=== PATIENT | female | born 1945 | race Caucasian/White ===

== ENCOUNTER → 2016-05-24 | Outpatient (CLI) | payer MEDICARE ==
[~2016-05-24] MED LIST: AMIODARONE HCL100 M1 PO; ARTHRITIS PILL PO; ASPIR 8181 MG PO; ASPIRIN ENTERIC81 M1 PO; ASPIRIN81 M1 PO; ATORVASTATIN CA20 M1 PO; CELEBREX100 MG PO; CELEBREX200 MG PO; CELEBREX50 MG PO; COUMADIN1 M1 PO; COUMADIN6 M1 PO; DEEP SEA 45 ML45 ML NAS; DIGOXIN0.125 MG PO; DILANTIN100 MG PO; FLUTICASON0.05 MG/AC NAS; HYDROCODONE BIT1 T11 PO; KEFLEX500 MG PO; KEPPRA500 MG PO; LASIX20 MG PO; LOPRESSOR50 M1 PO; MUCINEX ER600 MG PO; PROTONIX20 MG PO; PROTONIX40 MG PO; QUINAPRIL20 MG PO; SEPTRA DS 800 M1 TAB PO; SYNTHROID,LEV112 MCG PO; Synthroid,Lev125 MCG PO; TRAMADOL HCL50 MG PO; TRAMADOL HYDRO100 MG PO; TRAMADOL50 MG PO; TYLENOL #3 PO; VENTOLIN H0.09 MG/AC INH; VOLTAREN GEL1% TP; XYZAL5 MG PO; ZYRTEC D PO; ZYRTEC10 MG PO
[2016-05-24 10:19] LABS: BASO % 0.8 % (0.0-1.0); EOS # 0.2 10*3/uL (0.0-0.4); EOS % 3.9 % (1.0-4.0); HEMATOCRIT 38.9 % (37.0-47.0); HEMOGLOBIN 12.2 g/dl (12.0-16.0); LYMPH # 1.2 10*3/uL (1.3-4.4); LYMPH % 24.4 % (27.0-41.0); MEAN CELL VOLUME 80.9 fl (81.0-99.0); MEAN CORPUSCULAR HGB 25.4 pg (27.0-31.0); MEAN CORPUSCULAR HGB CONC 31.4 g/dl (33.0-37.0); MEAN PLATELET VOLUME 9.8 fl (9.6-12.3); MONO # 0.4 10*3/uL (0.1-1.0); MONO % 8.2 % (3.0-9.0); NEUT % 62.3 % (47.0-73.0); PLATELET COUNT AUTOMATED 189 10*3/uL (130-400); RED BLOOD COUNT 4.81 10*6/uL (4.10-5.10); RED CELL DISTRI WIDTH 16.9 % (0-14.5); WHITE BLOOD COUNT 4.9 10*3/uL (4.8-10.8)
[2016-05-24 10:35] LABS: ALBUMIN 3.6 gm/dl (3.1-4.5); ALKALINE PHOSPHATASE 129 U/L (45-117); BILIRUBIN, TOTAL 0.5 mg/dl (0.2-1.0); BUN 26 mg/dl (7-24); CARBON DIOXIDE 26 mmol/L (21-32); CHLORIDE 108 mmol/L (98-107); CHOLESTEROL 190 mg/dL (<200); EST GLOM FILT AFRICAN AMERICAN > 60 ml/min; GLUCOSE 105 mg/dL (65-99); HDL CHOLESTEROL 75 mg/dl (40-60); LDL CHOLESTEROL 89 mg/dL (9-159); POTASSIUM 3.5 mmol/L (3.5-5.1); SGOT/AST 17 IU/L (3-35); SGPT/ALT 20 U/L (12-78); SODIUM 140 mmol/L (136-145); TOTAL PROTEIN 7.1 gm/dL (6.4-8.2); TRIGLYCERIDES 132 mg/dl (<150); VLDL CHOLESTEROL 26 mg/dL (6-40)
[2016-05-24 10:36] LABS: HEMOGLOBIN A1c 5.4 % (4.8-5.6)
[2016-05-24 10:48] LABS: DIGOXIN 0.65 ng/ml (0.8-2.0)
== END | disposition home or self-care (01) ==
LOC: RESCLI 05-17 03:50 → LAB 02:02 → RESCLI 07:34
PROVIDERS: Student in an Organized Health Care Education/Training Program
DX: I25.10 Atherosclerotic heart disease of native coronary artery without angina pectoris (principal); E03.9 Hypothyroidism, unspecified; D64.9 Anemia, unspecified; E55.9 Vitamin D deficiency, unspecified

== ENCOUNTER → 2016-07-26 | Outpatient (CLI) | payer MEDICARE | END | disposition home or self-care (01) | LOC: RESCLI 02:00 | DX: J32.1 Chronic frontal sinusitis (principal); E03.9 Hypothyroidism, unspecified; I11.0 Hypertensive heart disease with heart failure; I50.9 Heart failure, unspecified; J44.9 Chronic obstructive pulmonary disease, unspecified; M19.011 Primary osteoarthritis, right shoulder; K21.9 Gastro-esophageal reflux disease without esophagitis; Z88.1 Allergy status to other antibiotic agents ==

== ENCOUNTER 2016-08-06 13:36 | Emergency (ER) | payer MEDICARE ==
[~2016-08-06] VITALS: Ht 154.9 cm; Wt 83.5 kg
[2016-08-06 13:55] VITALS: BP 156/78
[2016-08-06] MEDS ORDERED: CELECOXIB100 M1 PO (13:59)
[2016-08-06] MEDS ORDERED: VITAMIN-D1000 IU PO (13:59)
== END 2016-08-06 15:52 | disposition left against medical advice (07) ==
LOC: ED 13:36
DX: S60.221A Contusion of right hand, initial encounter (principal); S70.02XA Contusion of left hip, initial encounter; S20.212A Contusion of left front wall of thorax, initial encounter; S60.211A Contusion of right wrist, initial encounter; J44.9 Chronic obstructive pulmonary disease, unspecified; E03.9 Hypothyroidism, unspecified; Z86.73 Personal history of transient ischemic attack (TIA), and cerebral infarction without residual deficits; I11.0 Hypertensive heart disease with heart failure; I50.9 Heart failure, unspecified; M19.90 Unspecified osteoarthritis, unspecified site; D53.9 Nutritional anemia, unspecified; Z88.1 Allergy status to other antibiotic agents; Z88.8 Allergy status to other drugs, medicaments and biological substances; Z79.82 Long term (current) use of aspirin; Z79.899 Other long term (current) drug therapy

== ENCOUNTER → 2016-08-24 | Outpatient (CLI) | payer MEDICARE ==
[~2016-08-24] MED LIST changes: +CELECOXIB100 M1 PO; +VITAMIN-D1000 IU PO
== END | disposition home or self-care (01) ==
LOC: RESCLI 02:37
DX: E03.9 Hypothyroidism, unspecified (principal); I11.0 Hypertensive heart disease with heart failure; I50.9 Heart failure, unspecified; J44.9 Chronic obstructive pulmonary disease, unspecified; M15.9 Polyosteoarthritis, unspecified; G89.29 Other chronic pain; T14.8 Other injury of unspecified body region; J30.9 Allergic rhinitis, unspecified; K21.9 Gastro-esophageal reflux disease without esophagitis; I35.0 Nonrheumatic aortic (valve) stenosis; Z88.1 Allergy status to other antibiotic agents

== ENCOUNTER → 2016-09-21 | Outpatient (CLI) | payer MEDICARE | END | disposition home or self-care (01) | LOC: RESCLI 02:51 | DX: T14.8 Other injury of unspecified body region (principal); E03.9 Hypothyroidism, unspecified; E55.9 Vitamin D deficiency, unspecified; M15.9 Polyosteoarthritis, unspecified; G89.29 Other chronic pain; I25.10 Atherosclerotic heart disease of native coronary artery without angina pectoris; I11.0 Hypertensive heart disease with heart failure; K21.9 Gastro-esophageal reflux disease without esophagitis; I50.42 Chronic combined systolic (congestive) and diastolic (congestive) heart failure; Z88.1 Allergy status to other antibiotic agents; X58.XXXA Exposure to other specified factors, initial encounter; Y93.89 Activity, other specified; Y92.89 Other specified places as the place of occurrence of the external cause; Y99.8 Other external cause status ==

== ENCOUNTER → 2016-10-19 | Outpatient (CLI) | payer MEDICARE | END | disposition home or self-care (01) | LOC: RESCLI 01:31 | DX: I11.0 Hypertensive heart disease with heart failure (principal); I25.10 Atherosclerotic heart disease of native coronary artery without angina pectoris; I50.42 Chronic combined systolic (congestive) and diastolic (congestive) heart failure; E55.9 Vitamin D deficiency, unspecified; M54.5 Low back pain; E03.9 Hypothyroidism, unspecified; M15.9 Polyosteoarthritis, unspecified; Z86.718 Personal history of other venous thrombosis and embolism ==

== ENCOUNTER → 2016-11-02 | Outpatient (CLI) | payer MEDICARE | END | disposition home or self-care (01) | LOC: RESCLI 01:37 | DX: I11.0 Hypertensive heart disease with heart failure (principal); I50.42 Chronic combined systolic (congestive) and diastolic (congestive) heart failure; J30.2 Other seasonal allergic rhinitis; M54.9 Dorsalgia, unspecified; G89.29 Other chronic pain; M15.9 Polyosteoarthritis, unspecified; E03.9 Hypothyroidism, unspecified; E55.9 Vitamin D deficiency, unspecified; I25.10 Atherosclerotic heart disease of native coronary artery without angina pectoris ==

== ENCOUNTER → 2016-12-20 | Outpatient (CLI) | payer MEDICARE, MEDICAID | END | disposition home or self-care (01) | LOC: RESCLI 01:28 | DX: D64.9 Anemia, unspecified (principal); M54.9 Dorsalgia, unspecified; E55.9 Vitamin D deficiency, unspecified; G89.29 Other chronic pain; I25.10 Atherosclerotic heart disease of native coronary artery without angina pectoris; I13.0 Hypertensive heart and chronic kidney disease with heart failure and stage 1 through stage 4 chronic kidney disease, or unspecified chronic kidney disease; N18.3 Chronic kidney disease, stage 3 (moderate); I50.42 Chronic combined systolic (congestive) and diastolic (congestive) heart failure; E03.9 Hypothyroidism, unspecified; M15.9 Polyosteoarthritis, unspecified; J30.2 Other seasonal allergic rhinitis; J44.9 Chronic obstructive pulmonary disease, unspecified; M79.89 Other specified soft tissue disorders; Z88.1 Allergy status to other antibiotic agents ==

== ENCOUNTER → 2017-02-15 | Outpatient (CLI) | payer MEDICARE | END | disposition home or self-care (01) | LOC: RESCLI 08:41 | DX: I11.0 Hypertensive heart disease with heart failure (principal); I50.42 Chronic combined systolic (congestive) and diastolic (congestive) heart failure; R68.89 Other general symptoms and signs; J02.9 Acute pharyngitis, unspecified; B96.89 Other specified bacterial agents as the cause of diseases classified elsewhere; J01.90 Acute sinusitis, unspecified; M15.9 Polyosteoarthritis, unspecified; J30.2 Other seasonal allergic rhinitis; M79.89 Other specified soft tissue disorders; R60.0 Localized edema; Z96.653 Presence of artificial knee joint, bilateral ==

== ENCOUNTER → 2017-03-29 | Outpatient (CLI) | payer MEDICARE ==
[2017-03-29 11:38] LABS: BASO % 0.7 % (0.0-1.0); EOS % 0.7 % (1.0-4.0); HEMATOCRIT 40.1 % (37.0-47.0); HEMOGLOBIN 13.4 g/dl (12.0-16.0); LYMPH # 0.6 10*3/uL (1.3-4.4); LYMPH % 13.7 % (27.0-41.0); MEAN CELL VOLUME 92.2 fl (81.0-99.0); MEAN CORPUSCULAR HGB 30.8 pg (27.0-31.0); MEAN CORPUSCULAR HGB CONC 33.4 g/dl (33.0-37.0); MEAN PLATELET VOLUME 10.9 fl (9.6-12.3); MONO # 0.5 10*3/uL (0.1-1.0); MONO % 11.1 % (3.0-9.0); NEUT # 3.1 10*3/uL (2.3-7.9); NEUT % 73.3 % (47.0-73.0); PLATELET COUNT AUTOMATED 122 10*3/uL (130-400); RED BLOOD COUNT 4.35 10*6/uL (4.10-5.10); RED CELL DISTRI WIDTH 14.1 % (0-14.5); WHITE BLOOD COUNT 4.2 10*3/uL (4.8-10.8)
[2017-03-29 12:12] LABS: ALBUMIN 3.6 gm/dl (3.1-4.5); CREATININE 1.13 mg/dL (0.55-1.02); POTASSIUM 2.9 mmol/L (3.5-5.1); TOTAL PROTEIN 7.1 gm/dL (6.4-8.2)
[2017-03-29 13:19] LABS: VITAMIN D, 25-HYDROXY 19.2 ng/mL (30-100)
[2017-03-30 08:10] LABS: RHEUMATOID ARTHRITIS FACTOR <10.0 IU/mL (0.0-13.9)
[2017-03-30 11:03] LABS: ANA DIRECT Negative (Negative)
[2017-03-30 22:05] LABS: CCP ANTIBODIES IGG/IGA 1 units (0-19)
== END | disposition home or self-care (01) ==
LOC: RESCLI 00:49 → LAB 00:49 → RESCLI 10:29
PROVIDERS: Internal Medicine Hospice and Palliative Medicine
DX: E03.9 Hypothyroidism, unspecified (principal); E55.9 Vitamin D deficiency, unspecified; J44.9 Chronic obstructive pulmonary disease, unspecified; I11.0 Hypertensive heart disease with heart failure; I50.42 Chronic combined systolic (congestive) and diastolic (congestive) heart failure; G89.29 Other chronic pain

== ENCOUNTER → 2017-05-02 | Outpatient (CLI) | payer MEDICARE | END | disposition home or self-care (01) | LOC: RESCLI 03:54 | DX: I13.0 Hypertensive heart and chronic kidney disease with heart failure and stage 1 through stage 4 chronic kidney disease, or unspecified chronic kidney disease (principal); I50.42 Chronic combined systolic (congestive) and diastolic (congestive) heart failure; N18.3 Chronic kidney disease, stage 3 (moderate); M15.9 Polyosteoarthritis, unspecified; G89.29 Other chronic pain; M54.5 Low back pain; E03.9 Hypothyroidism, unspecified; E55.9 Vitamin D deficiency, unspecified; I25.10 Atherosclerotic heart disease of native coronary artery without angina pectoris; J44.9 Chronic obstructive pulmonary disease, unspecified; J01.01 Acute recurrent maxillary sinusitis; R42 Dizziness and giddiness ==

== ENCOUNTER 2017-05-24 11:34 | Inpatient (IN) | payer MEDICARE ==
[~2017-05-24] VITALS: Ht 160 cm; Wt 72.6 kg
--- NOTE | ~2017-05-24 | EKG ---
[place], [place] ELECTROCARDIOGRAM REPORT NAME: CATIE MARR UNIT #: [id number] ROOM: 419 DOCTOR: BENJI VALENCIA MD BIRTHDATE: [birth year] DOS: RATE AND RHYTHM: Normal sinus rhythm at 72 beats per minute. MS interval 187 milliseconds, QRS duration 160 milliseconds. Corrected QT interval 403 milliseconds. QRS axis is -13. IMPRESSION: 1. Sinus rhythm. 2. Left ventricle hypertrophy with IVCD and secondary repolarization abnormalities. ST-T wave abnormality seen in I, aVL, V5, V6. No old EKG to compare with. BENJI VALENCIA MD CM:EKGRPT:ELECTROCARDIOGRAM REPORT [id number] BENJI VALECNIA MD
[2017-05-24 11:36] VITALS: BP 98/45
[2017-05-24 12:16] LABS: BASO # 0.1 10*3/uL (0.0-0.1); BASO % 0.5 % (0.0-1.0); EOS # 0.2 10*3/uL (0.0-0.4); HEMATOCRIT 45.7 % (37.0-47.0); HEMOGLOBIN 16.1 g/dl (12.0-16.0); LYMPH % 20.4 % (27.0-41.0); MEAN CELL VOLUME 88.9 fl (81.0-99.0); MEAN CORPUSCULAR HGB 31.3 pg (27.0-31.0); MEAN CORPUSCULAR HGB CONC 35.2 g/dl (33.0-37.0); MEAN PLATELET VOLUME 10.1 fl (9.6-12.3); MONO # 0.7 10*3/uL (0.1-1.0); MONO % 7.2 % (3.0-9.0); NEUT # 6.9 10*3/uL (2.3-7.9); NEUT % 68.8 % (47.0-73.0); PLATELET COUNT AUTOMATED 250 10*3/uL (130-400); RED BLOOD COUNT 5.14 10*6/uL (4.10-5.10); RED CELL DISTRI WIDTH 12.3 % (0-14.5)
[2017-05-24 12:25] LABS: ACT PARTIAL THROMBO TIME 21.7 SECONDS (20.8-31.5)
[2017-05-24 12:32] LABS: ALBUMIN 3.9 gm/dl (3.1-4.5); ALKALINE PHOSPHATASE 137 U/L (45-117); BUN 53 mg/dl (7-24); CHLORIDE 90 mmol/L (98-107); CREATININE 1.99 mg/dL (0.55-1.02); LIPASE 231 U/L (73-393); POTASSIUM 2.6 mmol/L (3.5-5.1); SGOT/AST 20 IU/L (3-35); SGPT/ALT 26 U/L (12-78); SODIUM 132 mmol/L (136-145); TOTAL PROTEIN 8.3 gm/dL (6.4-8.2)
[2017-05-24 12:39] LABS: TROPONIN I < 0.015 ng/ml (<0.045)
[2017-05-24 12:48] VITALS: BP 144/68
[2017-05-24 14:00] VITALS: BP 161/80
[2017-05-24] MEDS ORDERED: LASIX20 MG PO (14:15)
[2017-05-24 16:09] VITALS: BP 149/82
[2017-05-24 16:38] LABS: BILIRUBIN NEGATIVE (NEGATIVE); BLOOD NEGATIVE (NEGATIVE); CLARITY SL CLOUDY (CLEAR); COLOR YELLOW (YELLOW); GLUCOSE NEGATIVE (NEGATIVE); KETONE NEGATIVE (NEGATIVE); LEUKO ESTERASE 2+ (NEGATIVE); NITRITE NEGATIVE (NEGATIVE); UROBILINOGEN 0.2 E.U./dl (0.2-1.0)
[2017-05-24 16:52] LABS: BACTERIA 1+; YEAST TRACE
[2017-05-24 16:53] LABS: EPITHELIAL CELLS 41-50
[2017-05-24 16:54] LABS: WBC 21-30 wbc/hpf (0-5)
[2017-05-24 20:00] VITALS: BP 144/76
[2017-05-25] VITALS: BP 118/50
[2017-05-25 06:15] LABS: BASO % 0.5 % (0.0-1.0); EOS # 0.2 10*3/uL (0.0-0.4); LYMPH # 1.1 10*3/uL (1.3-4.4); LYMPH % 18.8 % (27.0-41.0); MEAN CORPUSCULAR HGB 31.2 pg (27.0-31.0); MEAN CORPUSCULAR HGB CONC 33.8 g/dl (33.0-37.0); MEAN PLATELET VOLUME 10.2 fl (9.6-12.3); MONO # 0.5 10*3/uL (0.1-1.0); MONO % 7.6 % (3.0-9.0); NEUT # 4.1 10*3/uL (2.3-7.9); NEUT % 68.3 % (47.0-73.0); RED BLOOD COUNT 4.23 10*6/uL (4.10-5.10); RED CELL DISTRI WIDTH 12.7 % (0-14.5); WHITE BLOOD COUNT 6.1 10*3/uL (4.8-10.8)
[2017-05-25 06:18] LABS: HEMOGLOBIN 13.2 g/dl (12.0-16.0); MEAN CELL VOLUME 92.2 fl (81.0-99.0); PLATELET COUNT AUTOMATED 168 10*3/uL (130-400)
[2017-05-25 06:32] LABS: ALBUMIN 3.1 gm/dl (3.1-4.5); CREATININE 1.66 mg/dL (0.55-1.02); PHOSPHOROUS 2.7 mg/dL (2.5-4.9); POTASSIUM 2.7 mmol/L (3.5-5.1)
[2017-05-25 06:45] LABS: DIGOXIN 1.62 ng/ml (0.8-2.0); THYROID STIM HORMONE (HS) 0.252 uIU/ml (0.358-4.75); TOTAL PROTEIN 6.4 gm/dL (6.4-8.2)
[2017-05-25 07:53] LABS: VITAMIN D, 25-HYDROXY 39.5 ng/mL (30-100)
[2017-05-25 08:00] VITALS: BP 127/46
[2017-05-25 12:00] VITALS: BP 135/57
[2017-05-25 15:29] LABS: CREATININE 1.61 mg/dL (0.55-1.02); POTASSIUM 3.3 mmol/L (3.5-5.1)
[2017-05-25 16:00] VITALS: BP 146/56
[2017-05-25 20:00] VITALS: BP 126/86; BP 138/96
== END 2017-05-26 00:13 | disposition left against medical advice (07) | DRG 871 ==
LOC: ED 11:34 → 4E 13:39 → EDHOLD 13:39 → 4E 14:11
PROVIDERS: Emergency Medicine; Internal Medicine
DX: A41.9 Sepsis, unspecified organism (principal); N17.0 Acute kidney failure with tubular necrosis; I50.42 Chronic combined systolic (congestive) and diastolic (congestive) heart failure; E87.1 Hypo-osmolality and hyponatremia; I11.0 Hypertensive heart disease with heart failure; E86.0 Dehydration; K52.9 Noninfective gastroenteritis and colitis, unspecified; E87.6 Hypokalemia; I35.0 Nonrheumatic aortic (valve) stenosis; M15.9 Polyosteoarthritis, unspecified; E87.8 Other disorders of electrolyte and fluid balance, not elsewhere classified; R73.9 Hyperglycemia, unspecified; E83.41 Hypermagnesemia; E03.9 Hypothyroidism, unspecified; Z96.651 Presence of right artificial knee joint; Z90.49 Acquired absence of other specified parts of digestive tract; Z95.2 Presence of prosthetic heart valve; Z86.73 Personal history of transient ischemic attack (TIA), and cerebral infarction without residual deficits; Z87.891 Personal history of nicotine dependence; Z86.718 Personal history of other venous thrombosis and embolism; Z79.82 Long term (current) use of aspirin; Z79.899 Other long term (current) drug therapy; Z88.1 Allergy status to other antibiotic agents; Z88.8 Allergy status to other drugs, medicaments and biological substances; Z82.49 Family history of ischemic heart disease and other diseases of the circulatory system; Z83.49 Family history of other endocrine, nutritional and metabolic diseases

== ENCOUNTER → 2017-06-07 | Outpatient (CLI) | payer MEDICARE ==
[2017-06-07 11:42] LABS: CREATININE 1.65 mg/dL (0.55-1.02); POTASSIUM 3.1 mmol/L (3.5-5.1)
[2017-06-07 11:52] LABS: DIGOXIN 1.89 ng/ml (0.8-2.0)
== END | disposition home or self-care (01) ==
LOC: RESCLI 01:32
PROVIDERS: Student in an Organized Health Care Education/Training Program
DX: I13.0 Hypertensive heart and chronic kidney disease with heart failure and stage 1 through stage 4 chronic kidney disease, or unspecified chronic kidney disease (principal); I50.42 Chronic combined systolic (congestive) and diastolic (congestive) heart failure; N18.3 Chronic kidney disease, stage 3 (moderate); J44.9 Chronic obstructive pulmonary disease, unspecified; M54.5 Low back pain; I35.0 Nonrheumatic aortic (valve) stenosis; E55.9 Vitamin D deficiency, unspecified; E03.9 Hypothyroidism, unspecified; M15.9 Polyosteoarthritis, unspecified; R42 Dizziness and giddiness

== ENCOUNTER → 2017-07-18 | Outpatient (CLI) | payer MEDICARE | END | disposition home or self-care (01) | LOC: RESCLI 04:33 | DX: I13.0 Hypertensive heart and chronic kidney disease with heart failure and stage 1 through stage 4 chronic kidney disease, or unspecified chronic kidney disease (principal); N18.3 Chronic kidney disease, stage 3 (moderate); I50.42 Chronic combined systolic (congestive) and diastolic (congestive) heart failure; I35.0 Nonrheumatic aortic (valve) stenosis; J44.9 Chronic obstructive pulmonary disease, unspecified; M54.5 Low back pain; E55.9 Vitamin D deficiency, unspecified; E03.9 Hypothyroidism, unspecified; M15.9 Polyosteoarthritis, unspecified; K21.9 Gastro-esophageal reflux disease without esophagitis; Z88.1 Allergy status to other antibiotic agents ==

== ENCOUNTER → 2017-08-23 | Outpatient (CLI) | payer MEDICARE ==
[2017-08-23 11:56] LABS: CREATININE 1.55 mg/dL (0.55-1.02); POTASSIUM 3.4 mmol/L (3.5-5.1)
== END | disposition home or self-care (01) ==
LOC: RESCLI 04:09
PROVIDERS: Internal Medicine
DX: J45.909 Unspecified asthma, uncomplicated (principal); M54.5 Low back pain; Z79.899 Other long term (current) drug therapy; Z88.8 Allergy status to other drugs, medicaments and biological substances

== ENCOUNTER → 2017-09-21 | Outpatient (CLI) | payer MEDICARE | END | disposition home or self-care (01) | LOC: RESCLI 04:34 | DX: I13.0 Hypertensive heart and chronic kidney disease with heart failure and stage 1 through stage 4 chronic kidney disease, or unspecified chronic kidney disease (principal); N18.3 Chronic kidney disease, stage 3 (moderate); I50.42 Chronic combined systolic (congestive) and diastolic (congestive) heart failure; J44.9 Chronic obstructive pulmonary disease, unspecified; I35.0 Nonrheumatic aortic (valve) stenosis; E55.9 Vitamin D deficiency, unspecified; E03.9 Hypothyroidism, unspecified; M15.9 Polyosteoarthritis, unspecified; M54.5 Low back pain; M79.89 Other specified soft tissue disorders; Z88.8 Allergy status to other drugs, medicaments and biological substances ==

== ENCOUNTER 2017-09-25 14:34 | Emergency (ER) | payer MEDICARE ==
[~2017-09-25] VITALS: Ht 154.9 cm; Wt 61.2 kg
[2017-09-25 14:37] VITALS: BP 150/67
[2017-09-25 15:47] LABS: BASO % 0.6 % (0.0-1.0); EOS # 0.2 10*3/uL (0.0-0.4); EOS % 3.2 % (1.0-4.0); HEMATOCRIT 36.8 % (37.0-47.0); HEMOGLOBIN 12.3 g/dl (12.0-16.0); LYMPH # 1.3 10*3/uL (1.3-4.4); LYMPH % 19.2 % (27.0-41.0); MEAN CELL VOLUME 94.8 fl (81.0-99.0); MEAN CORPUSCULAR HGB 31.7 pg (27.0-31.0); MEAN CORPUSCULAR HGB CONC 33.4 g/dl (33.0-37.0); MEAN PLATELET VOLUME 10.5 fl (9.6-12.3); MONO # 0.4 10*3/uL (0.1-1.0); MONO % 5.2 % (3.0-9.0); NEUT % 71.5 % (47.0-73.0); PLATELET COUNT AUTOMATED 193 10*3/uL (130-400); RED BLOOD COUNT 3.88 10*6/uL (4.10-5.10); RED CELL DISTRI WIDTH 13.1 % (0-14.5); WHITE BLOOD COUNT 6.9 10*3/uL (4.8-10.8)
[2017-09-25 15:55] LABS: ACT PARTIAL THROMBO TIME 24.7 SECONDS (20.8-31.5); INTERNATIONAL NORM RATIO 0.9 (2.0-3.5)
[2017-09-25 16:12] LABS: ALBUMIN 3.6 gm/dl (3.1-4.5); CREATININE 1.34 mg/dL (0.55-1.02); POTASSIUM 3.6 mmol/L (3.5-5.1)
== END 2017-09-25 17:32 | disposition home or self-care (01) ==
LOC: ED 14:34
PROVIDERS: Emergency Medicine
DX: R20.0 Anesthesia of skin (principal); I11.0 Hypertensive heart disease with heart failure; I50.9 Heart failure, unspecified; E03.9 Hypothyroidism, unspecified; M19.90 Unspecified osteoarthritis, unspecified site; Z88.1 Allergy status to other antibiotic agents; Z88.8 Allergy status to other drugs, medicaments and biological substances; Z79.899 Other long term (current) drug therapy; Z79.82 Long term (current) use of aspirin; Z87.891 Personal history of nicotine dependence

== ENCOUNTER → 2017-12-08 | Outpatient (CLI) | payer MEDICARE ==
[~2017-12-08] MED LIST changes: +'zithromax250 MG PO; +GUAIFENESIN600 MG PO; +K-TAB20 MEQ PO
== END | disposition home or self-care (01) ==
LOC: RESCLI 00:58
DX: Z41.9 Encounter for procedure for purposes other than remedying health state, unspecified (principal); I13.0 Hypertensive heart and chronic kidney disease with heart failure and stage 1 through stage 4 chronic kidney disease, or unspecified chronic kidney disease; I50.42 Chronic combined systolic (congestive) and diastolic (congestive) heart failure; N18.3 Chronic kidney disease, stage 3 (moderate); M19.90 Unspecified osteoarthritis, unspecified site; E55.9 Vitamin D deficiency, unspecified; I25.10 Atherosclerotic heart disease of native coronary artery without angina pectoris; E03.9 Hypothyroidism, unspecified; H18.9 Unspecified disorder of cornea; R42 Dizziness and giddiness; J44.9 Chronic obstructive pulmonary disease, unspecified; E66.3 Overweight; Z79.899 Other long term (current) drug therapy; Z79.82 Long term (current) use of aspirin; Z88.8 Allergy status to other drugs, medicaments and biological substances

== ENCOUNTER 2018-01-13 13:36 | Emergency (ER) | payer MEDICARE ==
[~2018-01-13] VITALS: Ht 165.1 cm; Wt 68.0 kg
[~2018-01-13 13:36] MED LIST changes: -'zithromax250 MG PO; -GUAIFENESIN600 MG PO; -K-TAB20 MEQ PO
[2018-01-13 14:19] LABS: BASO % 0.3 % (0.0-1.0); EOS # 0.2 10*3/uL (0.0-0.4); EOS % 2.7 % (1.0-4.0); HEMOGLOBIN 12.5 g/dl (12.0-16.0); LYMPH # 1.4 10*3/uL (1.3-4.4); LYMPH % 15.7 % (27.0-41.0); MEAN CELL VOLUME 94.5 fl (81.0-99.0); MEAN CORPUSCULAR HGB 31.1 pg (27.0-31.0); MEAN CORPUSCULAR HGB CONC 32.9 g/dl (33.0-37.0); MONO # 0.6 10*3/uL (0.1-1.0); MONO % 7.2 % (3.0-9.0); NEUT # 6.3 10*3/uL (2.3-7.9); NEUT % 73.9 % (47.0-73.0); PLATELET COUNT AUTOMATED 167 10*3/uL (130-400); RED BLOOD COUNT 4.02 10*6/uL (4.10-5.10); RED CELL DISTRI WIDTH 12.9 % (0-14.5); WHITE BLOOD COUNT 8.6 10*3/uL (4.8-10.8)
[2018-01-13 14:35] LABS: ALBUMIN 3.6 gm/dl (3.1-4.5); CREATININE 1.11 mg/dL (0.55-1.02); POTASSIUM 2.9 mmol/L (3.5-5.1)
[2018-01-13 14:36] VITALS: BP 126/79
[2018-01-13] MEDS ORDERED: K-TAB20 MEQ PO (15:12)
[2018-01-13] MEDS ORDERED: GUAIFENESIN600 MG PO (15:18)
[2018-01-13] MEDS ORDERED: 'zithromax250 MG PO (15:18)
== END 2018-01-13 15:21 | disposition home or self-care (01) ==
LOC: ED 13:36
PROVIDERS: Nurse Practitioner Family
DX: J06.9 Acute upper respiratory infection, unspecified (principal); E87.6 Hypokalemia; I11.0 Hypertensive heart disease with heart failure; I50.9 Heart failure, unspecified; E03.9 Hypothyroidism, unspecified; Z88.1 Allergy status to other antibiotic agents; Z88.8 Allergy status to other drugs, medicaments and biological substances; Z79.82 Long term (current) use of aspirin; Z79.899 Other long term (current) drug therapy; Z86.73 Personal history of transient ischemic attack (TIA), and cerebral infarction without residual deficits; Z86.718 Personal history of other venous thrombosis and embolism; Z90.49 Acquired absence of other specified parts of digestive tract; Z87.891 Personal history of nicotine dependence

== ENCOUNTER 2018-02-13 13:55 | Emergency (ER) | payer MEDICARE, MEDICAID ==
--- NOTE | ~2018-02-13 | EKG ---
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
[~2018-02-13 13:55] MED LIST changes: +'zithromax250 MG PO; +DOXYCYCLINE100 M3 PO; +GUAIFENESIN600 MG PO; +K-TAB20 MEQ PO; +PREDNISONE50 MG PO
[2018-02-13 14:05] VITALS: BP 154/98
[2018-02-13 14:44] LABS: BASO % 0.3 % (0.0-1.0); EOS # 0.1 10*3/uL (0.0-0.4); EOS % 0.9 % (1.0-4.0); HEMATOCRIT 42.4 % (37.0-47.0); HEMOGLOBIN 13.7 g/dl (12.0-16.0); LYMPH # 0.8 10*3/uL (1.3-4.4); LYMPH % 10.4 % (27.0-41.0); MEAN CELL VOLUME 94.4 fl (81.0-99.0); MEAN CORPUSCULAR HGB 30.5 pg (27.0-31.0); MEAN CORPUSCULAR HGB CONC 32.3 g/dl (33.0-37.0); MEAN PLATELET VOLUME 10.4 fl (9.6-12.3); MONO # 0.1 10*3/uL (0.1-1.0); MONO % 1.3 % (3.0-9.0); NEUT # 6.8 10*3/uL (2.3-7.9); NEUT % 86.7 % (47.0-73.0); PLATELET COUNT AUTOMATED 168 10*3/uL (130-400); RED BLOOD COUNT 4.49 10*6/uL (4.10-5.10); RED CELL DISTRI WIDTH 13.2 % (0-14.5); WHITE BLOOD COUNT 7.8 10*3/uL (4.8-10.8)
[2018-02-13 14:53] LABS: ACT PARTIAL THROMBO TIME 24.3 SECONDS (20.8-31.5); INTERNATIONAL NORM RATIO 0.9 (2.0-3.5)
[2018-02-13 15:01] LABS: ALBUMIN 3.8 gm/dl (3.1-4.5); ALKALINE PHOSPHATASE 121 U/L (45-117); BUN 35 mg/dl (7-24); CHLORIDE 106 mmol/L (98-107); CREATININE 1.26 mg/dL (0.55-1.02); LIPASE 555 U/L (73-393); POTASSIUM 3.5 mmol/L (3.5-5.1); SGOT/AST 14 IU/L (3-35); SGPT/ALT 20 U/L (12-78); SODIUM 142 mmol/L (136-145); TOTAL PROTEIN 7.1 gm/dL (6.4-8.2); TROPONIN I < 0.015 ng/ml (<0.045)
[2018-02-13 16:56] LABS: BILIRUBIN NEGATIVE (NEGATIVE); BLOOD NEGATIVE (NEGATIVE); CLARITY CLEAR (CLEAR); COLOR YELLOW (YELLOW); GLUCOSE NEGATIVE (NEGATIVE); KETONE NEGATIVE (NEGATIVE); LEUKO ESTERASE NEGATIVE (NEGATIVE); NITRITE NEGATIVE (NEGATIVE); UROBILINOGEN 0.2 E.U./dl (0.2-1.0)
[2018-02-13 17:17] LABS: BACTERIA TRACE; RBC 0-2 rbc/hpf (0-2); WBC 0-2 wbc/hpf (0-5)
[2018-02-13] MEDS ORDERED: NORCO 5-325 TA1 EACH PO (17:46)
== END 2018-02-13 17:55 | disposition home or self-care (01) ==
LOC: ED 13:55
PROVIDERS: Emergency Medicine
DX: R10.32 Left lower quadrant pain (principal); M25.559 Pain in unspecified hip; I11.0 Hypertensive heart disease with heart failure; I50.9 Heart failure, unspecified; E03.9 Hypothyroidism, unspecified; Z86.718 Personal history of other venous thrombosis and embolism; Z90.49 Acquired absence of other specified parts of digestive tract; Z87.891 Personal history of nicotine dependence

== ENCOUNTER 2018-03-17 14:08 | Emergency (ER) | payer MEDICARE, MEDICAID ==
[~2018-03-17] VITALS: Ht 154.9 cm; Wt 73.9 kg
[~2018-03-17 14:08] MED LIST changes: +NORCO 5-325 TA1 EACH PO
[2018-03-17 14:58] LABS: BASO % 0.2 % (0.0-1.0); EOS # 0.2 10*3/uL (0.0-0.4); EOS % 1.7 % (1.0-4.0); HEMATOCRIT 44.3 % (37.0-47.0); HEMOGLOBIN 14.5 g/dl (12.0-16.0); LYMPH # 1.5 10*3/uL (1.3-4.4); LYMPH % 16.7 % (27.0-41.0); MEAN CELL VOLUME 94.9 fl (81.0-99.0); MEAN CORPUSCULAR HGB CONC 32.7 g/dl (33.0-37.0); MEAN PLATELET VOLUME 10.5 fl (9.6-12.3); MONO # 0.4 10*3/uL (0.1-1.0); MONO % 4.9 % (3.0-9.0); NEUT # 6.8 10*3/uL (2.3-7.9); NEUT % 76.3 % (47.0-73.0); PLATELET COUNT AUTOMATED 199 10*3/uL (130-400); RED BLOOD COUNT 4.67 10*6/uL (4.10-5.10); RED CELL DISTRI WIDTH 12.8 % (0-14.5); WHITE BLOOD COUNT 8.9 10*3/uL (4.8-10.8)
[2018-03-17 15:21] LABS: ALBUMIN 3.6 gm/dl (3.1-4.5); ALKALINE PHOSPHATASE 127 U/L (45-117); BUN 34 mg/dl (7-24); CHLORIDE 104 mmol/L (98-107); CREATININE 1.32 mg/dL (0.55-1.02); LIPASE 145 U/L (73-393); POTASSIUM 3.5 mmol/L (3.5-5.1); SGOT/AST 14 IU/L (3-35); SGPT/ALT 22 U/L (12-78); SODIUM 141 mmol/L (136-145); TOTAL PROTEIN 7.5 gm/dL (6.4-8.2)
[2018-03-17 15:23] LABS: TROPONIN I < 0.015 ng/ml (<0.045)
[2018-03-17] MEDS ORDERED: PREDNISONE50 MG PO (15:46)
[2018-03-17] MEDS ORDERED: FLONASE ALLERG9.9 ML NAS (15:46)
[2018-03-17] MEDS ORDERED: BROMFED DM COU118 M2 PO (15:46)
[2018-03-17] MEDS ORDERED: NAPROSYN500 MG PO (15:46)
[2018-03-17 16:03] VITALS: BP 168/98
== END 2018-03-17 15:52 | disposition home or self-care (01) ==
LOC: ED 14:08
PROVIDERS: Nurse Practitioner Family
DX: J06.9 Acute upper respiratory infection, unspecified (principal); I11.0 Hypertensive heart disease with heart failure; I50.9 Heart failure, unspecified; E03.9 Hypothyroidism, unspecified; M19.90 Unspecified osteoarthritis, unspecified site; Z88.1 Allergy status to other antibiotic agents; Z88.8 Allergy status to other drugs, medicaments and biological substances; Z79.899 Other long term (current) drug therapy; Z79.82 Long term (current) use of aspirin; Z86.718 Personal history of other venous thrombosis and embolism

== ENCOUNTER → 2018-08-23 | Outpatient (CLI) | payer OTHER, MEDICAID ==
[~2018-08-23] MED LIST changes: +BROMFED DM COU118 M2 PO; +FLONASE ALLERG9.9 ML NAS; +NAPROSYN500 MG PO
== END | disposition home or self-care (01) ==
LOC: CARD 13:00
DX: I34.0 Nonrheumatic mitral (valve) insufficiency (principal); R60.0 Localized edema; R94.31 Abnormal electrocardiogram [ECG] [EKG]

== ENCOUNTER 2018-11-17 15:04 | Emergency (ER) | payer OTHER, MEDICAID ==
[~2018-11-17] VITALS: Ht 154.9 cm; Wt 79.8 kg
== END 2018-11-17 16:43 | disposition home or self-care (01) ==
LOC: ED 15:04
DX: S90.121A Contusion of right lesser toe(s) without damage to nail, initial encounter (principal); Z88.1 Allergy status to other antibiotic agents; Z88.8 Allergy status to other drugs, medicaments and biological substances; Z79.899 Other long term (current) drug therapy; Z79.82 Long term (current) use of aspirin; Z87.891 Personal history of nicotine dependence; W20.8XXA Other cause of strike by thrown, projected or falling object, initial encounter; Y93.89 Activity, other specified; Y92.89 Other specified places as the place of occurrence of the external cause; Y99.8 Other external cause status

== ENCOUNTER 2019-04-27 12:20 | Emergency (ER) | payer OTHER ==
[~2019-04-27] VITALS: Ht 154.9 cm; Wt 77.1 kg
[2019-04-27 12:26] VITALS: BP 159/75
== END 2019-04-27 16:18 | disposition home or self-care (01) ==
LOC: ED 12:20
DX: S93.402A Sprain of unspecified ligament of left ankle, initial encounter (principal); M79.672 Pain in left foot; M19.90 Unspecified osteoarthritis, unspecified site; I10 Essential (primary) hypertension; J45.909 Unspecified asthma, uncomplicated; E03.9 Hypothyroidism, unspecified; Z86.73 Personal history of transient ischemic attack (TIA), and cerebral infarction without residual deficits; Z88.1 Allergy status to other antibiotic agents; Z88.8 Allergy status to other drugs, medicaments and biological substances; Z79.82 Long term (current) use of aspirin; Z79.899 Other long term (current) drug therapy; Z96.652 Presence of left artificial knee joint; Z96.612 Presence of left artificial shoulder joint; Z90.49 Acquired absence of other specified parts of digestive tract; Z98.61 Coronary angioplasty status; Z87.891 Personal history of nicotine dependence; X50.1XXA Overexertion from prolonged static or awkward postures, initial encounter; Y93.01 Activity, walking, marching and hiking; Y92.098 Other place in other non-institutional residence as the place of occurrence of the external cause; Y99.8 Other external cause status

== ENCOUNTER 2019-05-02 13:43 | Emergency (ER) | payer OTHER ==
[~2019-05-02] VITALS: Ht 154.9 cm; Wt 74.8 kg
[2019-05-02 14:01] VITALS: BP 157/64
[2019-05-02] MEDS ORDERED: TRAMADOL HCL50 MG PO (14:42)
[2019-05-02] MEDS ORDERED: ZYRTEC10 M3 PO (15:21)
[2019-05-02] MEDS ORDERED: PROAIR HFA8.5 GM INH (15:21)
== END 2019-05-02 15:38 | disposition home or self-care (01) ==
LOC: ED 13:43
DX: B34.9 Viral infection, unspecified (principal); Z88.2 Allergy status to sulfonamides; Z88.1 Allergy status to other antibiotic agents; Z88.8 Allergy status to other drugs, medicaments and biological substances; Z79.899 Other long term (current) drug therapy; Z79.82 Long term (current) use of aspirin; Z87.891 Personal history of nicotine dependence

== ENCOUNTER 2019-05-20 23:19 | Emergency (ER) | payer OTHER ==
[~2019-05-20] VITALS: Ht 154.9 cm; Wt 79.8 kg
[~2019-05-20 23:19] MED LIST changes: +PROAIR HFA8.5 GM INH; +ZYRTEC10 M3 PO
[2019-05-20 23:27] VITALS: BP 144/78
== END 2019-05-21 00:50 | disposition left against medical advice (07) ==
LOC: ED 23:19
DX: J06.9 Acute upper respiratory infection, unspecified (principal); E03.9 Hypothyroidism, unspecified; I11.0 Hypertensive heart disease with heart failure; I50.9 Heart failure, unspecified; Z88.8 Allergy status to other drugs, medicaments and biological substances; Z79.899 Other long term (current) drug therapy; Z79.82 Long term (current) use of aspirin

== ENCOUNTER 2019-06-13 14:09 | Inpatient (IN) | payer OTHER ==
[~2019-06-13] VITALS: Ht 156.2 cm; Wt 82.6 kg
[2019-06-13 14:27] VITALS: BP 138/79
[2019-06-13 14:51] LABS: BASO % 0.2 % (0.0-1.0); EOS # 0.1 10*3/uL (0.0-0.4); EOS % 0.7 % (1.0-4.0); HEMATOCRIT 39.4 % (37.0-47.0); LYMPH # 0.9 10*3/uL (1.3-4.4); LYMPH % 9.4 % (27.0-41.0); MEAN CORPUSCULAR HGB 31.5 pg (27.0-31.0); MEAN CORPUSCULAR HGB CONC 31.5 g/dl (33.0-37.0); MEAN PLATELET VOLUME 11.1 fl (9.6-12.3); MONO # 0.7 10*3/uL (0.1-1.0); MONO % 7.3 % (3.0-9.0); NEUT # 7.8 10*3/uL (2.3-7.9); PLATELET COUNT AUTOMATED 160 10*3/uL (130-400); RED BLOOD COUNT 3.94 10*6/uL (4.10-5.10); RED CELL DISTRI WIDTH 14.5 % (0-14.5); WHITE BLOOD COUNT 9.5 10*3/uL (4.8-10.8)
[2019-06-13 15:00] VITALS: BP 124/74
[2019-06-13 15:06] LABS: ACT PARTIAL THROMBO TIME 27.2 SECONDS (20.0-32.1); ALBUMIN 3.2 gm/dl (3.1-4.5); ALKALINE PHOSPHATASE 114 U/L (45-117); BUN 28 mg/dl (7-24); CHLORIDE 111 mmol/L (98-107); CREATININE 1.08 mg/dL (0.55-1.02); POTASSIUM 3.8 mmol/L (3.5-5.1); SGOT/AST 29 IU/L (3-35); SGPT/ALT 60 U/L (12-78); SODIUM 142 mmol/L (136-145); TOTAL PROTEIN 5.9 gm/dL (6.4-8.2)
[2019-06-13 15:15] LABS: TROPONIN I 0.059 ng/ml (<0.045)
[2019-06-13 17:15] VITALS: BP 113/69
[2019-06-13] MEDS ORDERED: CELECOXIB200 M1 PO (17:33)
[2019-06-13] MEDS ORDERED: LIPITOR20 MG PO (17:37)
[2019-06-13] MEDS ORDERED: ZYRTEC-D TABLE1 EACH PO (17:38)
[2019-06-13] MEDS ORDERED: VITAMIN D325 MCG PO (17:39)
[2019-06-13] MEDS ORDERED: TRAZODONE50 MG PO (17:40)
[2019-06-13] MEDS ORDERED: TRELEGY ELLIPT1 EACH INH (17:42)
[2019-06-13] MEDS ORDERED: TRAMADOL HCL50 MG PO (19:05)
[2019-06-13 20:00] VITALS: BP 115/52
[2019-06-13 22:00] VITALS: BP 125/58
[2019-06-14] VITALS (8 sets, daily range): BP systolic 118–144; BP diastolic 70–98
[2019-06-14 06:04] LABS: CREATININE 1.26 mg/dL (0.55-1.02); POTASSIUM 3.3 mmol/L (3.5-5.1); TOTAL PROTEIN 5.5 gm/dL (6.4-8.2)
[2019-06-14 06:10] LABS: BASO % 0.3 % (0.0-1.0); EOS # 0.1 10*3/uL (0.0-0.4); EOS % 1.9 % (1.0-4.0); HEMATOCRIT 38.6 % (37.0-47.0); LYMPH # 1.1 10*3/uL (1.3-4.4); LYMPH % 15.3 % (27.0-41.0); MEAN CELL VOLUME 98.7 fl (81.0-99.0); MEAN CORPUSCULAR HGB 30.9 pg (27.0-31.0); MEAN CORPUSCULAR HGB CONC 31.3 g/dl (33.0-37.0); MEAN PLATELET VOLUME 11.7 fl (9.6-12.3); MONO # 0.8 10*3/uL (0.1-1.0); MONO % 11.6 % (3.0-9.0); NEUT # 4.9 10*3/uL (2.3-7.9); NEUT % 70.6 % (47.0-73.0); PLATELET COUNT AUTOMATED 145 10*3/uL (130-400); RED BLOOD COUNT 3.91 10*6/uL (4.10-5.10); RED CELL DISTRI WIDTH 14.6 % (0-14.5); WHITE BLOOD COUNT 6.9 10*3/uL (4.8-10.8)
[2019-06-14 06:11] LABS: FREE T4 1.16 ng/dl (0.76-1.46); THYROID STIM HORMONE (HS) 1.26 uIU/ml (0.358-4.75)
[2019-06-15] VITALS: BP 110/57
[2019-06-15 06:25] LABS: BASO # 0.1 10*3/uL (0.0-0.1); BASO % 0.7 % (0.0-1.0); EOS # 0.3 10*3/uL (0.0-0.4); EOS % 4.2 % (1.0-4.0); HEMATOCRIT 39.9 % (37.0-47.0); LYMPH # 1.1 10*3/uL (1.3-4.4); LYMPH % 15.3 % (27.0-41.0); MEAN CELL VOLUME 99.3 fl (81.0-99.0); MEAN CORPUSCULAR HGB 31.1 pg (27.0-31.0); MEAN CORPUSCULAR HGB CONC 31.3 g/dl (33.0-37.0); MEAN PLATELET VOLUME 11.4 fl (9.6-12.3); MONO # 0.6 10*3/uL (0.1-1.0); MONO % 8.6 % (3.0-9.0); NEUT # 5.2 10*3/uL (2.3-7.9); NEUT % 70.8 % (47.0-73.0); PLATELET COUNT AUTOMATED 166 10*3/uL (130-400); RED BLOOD COUNT 4.02 10*6/uL (4.10-5.10); RED CELL DISTRI WIDTH 14.5 % (0-14.5); WHITE BLOOD COUNT 7.3 10*3/uL (4.8-10.8)
[2019-06-15 06:44] LABS: CREATININE 1.37 mg/dL (0.55-1.02); POTASSIUM 3.8 mmol/L (3.5-5.1)
[2019-06-15 08:00] VITALS: BP 124/70
[2019-06-15 16:00] VITALS: BP 96/52
[2019-06-15 20:00] VITALS: BP 110/69
[2019-06-16] VITALS: BP 88/49
[2019-06-16 06:10] LABS: BASO # 0.1 10*3/uL (0.0-0.1); BASO % 0.7 % (0.0-1.0); EOS # 0.3 10*3/uL (0.0-0.4); EOS % 3.7 % (1.0-4.0); HEMATOCRIT 38.3 % (37.0-47.0); LYMPH # 1.2 10*3/uL (1.3-4.4); LYMPH % 17.2 % (27.0-41.0); MEAN CELL VOLUME 99.7 fl (81.0-99.0); MEAN CORPUSCULAR HGB 30.7 pg (27.0-31.0); MEAN CORPUSCULAR HGB CONC 30.8 g/dl (33.0-37.0); MEAN PLATELET VOLUME 11.4 fl (9.6-12.3); MONO # 0.7 10*3/uL (0.1-1.0); MONO % 9.5 % (3.0-9.0); NEUT # 4.9 10*3/uL (2.3-7.9); NEUT % 68.3 % (47.0-73.0); PLATELET COUNT AUTOMATED 161 10*3/uL (130-400); RED BLOOD COUNT 3.84 10*6/uL (4.10-5.10); RED CELL DISTRI WIDTH 14.4 % (0-14.5); WHITE BLOOD COUNT 7.2 10*3/uL (4.8-10.8)
[2019-06-16 06:35] LABS: CREATININE 2.19 mg/dL (0.55-1.02); POTASSIUM 3.5 mmol/L (3.5-5.1)
[2019-06-16 08:00] VITALS: BP 121/40
[2019-06-16 10:00] VITALS: BP 105/61
[2019-06-16 11:31] LABS: BILIRUBIN NEGATIVE (NEGATIVE); BLOOD NEGATIVE (NEGATIVE); CLARITY SL CLOUDY (CLEAR); COLOR YELLOW (YELLOW); GLUCOSE NEGATIVE (NEGATIVE); KETONE NEGATIVE (NEGATIVE); SPECIFIC GRAVITY 1.015 (1.005-1.030)
[2019-06-16 11:32] LABS: LEUKO ESTERASE 2+ (NEGATIVE); NITRITE NEGATIVE (NEGATIVE); UROBILINOGEN 0.2 E.U./dl (0.2-1.0)
[2019-06-16 11:38] LABS: BACTERIA 4+
[2019-06-16 11:40] LABS: CALCIUM OXALATE CRYSTALS 1+
[2019-06-16 11:45] LABS: HYALINE CAST 0-2
[2019-06-16 16:00] VITALS: BP 84/60
[2019-06-16 20:00] VITALS: BP 82/58
[2019-06-17] VITALS: BP 85/45
[2019-06-17 09:00] VITALS: BP 102/62
[2019-06-17 12:00] VITALS: BP 97/54
[2019-06-17 16:00] VITALS: BP 113/87
[2019-06-17 20:00] VITALS: BP 147/49
[2019-06-18 06:21] LABS: BASO % 0.5 % (0.0-1.0); EOS # 0.2 10*3/uL (0.0-0.4); EOS % 2.7 % (1.0-4.0); HEMATOCRIT 42.1 % (37.0-47.0); LYMPH # 1.2 10*3/uL (1.3-4.4); LYMPH % 20.7 % (27.0-41.0); MEAN CELL VOLUME 98.4 fl (81.0-99.0); MEAN CORPUSCULAR HGB 30.8 pg (27.0-31.0); MEAN CORPUSCULAR HGB CONC 31.4 g/dl (33.0-37.0); MEAN PLATELET VOLUME 11.6 fl (9.6-12.3); MONO # 0.5 10*3/uL (0.1-1.0); MONO % 9.7 % (3.0-9.0); NEUT # 3.7 10*3/uL (2.3-7.9); NEUT % 65.9 % (47.0-73.0); PLATELET COUNT AUTOMATED 166 10*3/uL (130-400); RED BLOOD COUNT 4.28 10*6/uL (4.10-5.10); RED CELL DISTRI WIDTH 14.2 % (0-14.5); WHITE BLOOD COUNT 5.6 10*3/uL (4.8-10.8)
[2019-06-18 06:36] LABS: CREATININE 1.88 mg/dL (0.55-1.02)
[2019-06-18 06:53] LABS: POTASSIUM 4.5 mmol/L (3.5-5.1)
[2019-06-18 08:00] VITALS: BP 102/58
[2019-06-18 12:00] VITALS: BP 103/75
[2019-06-18 16:00] VITALS: BP 131/86
[2019-06-18 20:00] VITALS: BP 114/80
[2019-06-19] VITALS: BP 126/78
[2019-06-19 06:22] LABS: CREATININE 1.35 mg/dL (0.55-1.02); POTASSIUM 4.8 mmol/L (3.5-5.1)
[2019-06-19 06:31] LABS: BASO % 0.5 % (0.0-1.0); EOS # 0.2 10*3/uL (0.0-0.4); EOS % 2.8 % (1.0-4.0); HEMATOCRIT 41.3 % (37.0-47.0); LYMPH % 15.7 % (27.0-41.0); MEAN CELL VOLUME 97.2 fl (81.0-99.0); MEAN CORPUSCULAR HGB 30.6 pg (27.0-31.0); MEAN CORPUSCULAR HGB CONC 31.5 g/dl (33.0-37.0); MEAN PLATELET VOLUME 11.1 fl (9.6-12.3); MONO # 0.6 10*3/uL (0.1-1.0); MONO % 10.4 % (3.0-9.0); NEUT # 4.3 10*3/uL (2.3-7.9); NEUT % 70.3 % (47.0-73.0); PLATELET COUNT AUTOMATED 166 10*3/uL (130-400); RED BLOOD COUNT 4.25 10*6/uL (4.10-5.10); WHITE BLOOD COUNT 6.1 10*3/uL (4.8-10.8)
[2019-06-19] MEDS ORDERED: LISINOPRIL5 MG PO (14:16)
[2019-06-19] MEDS ORDERED: COREG6.25 MG PO (14:16)
[2019-06-19] MEDS ORDERED: AMIODARONE HYD200 MG PO (14:16)
[2019-06-19] MEDS ORDERED: XARE15TA PO (14:16)
[2019-06-19 16:00] VITALS: BP 124/64
[2019-06-19 20:00] VITALS: BP 127/61
== END 2019-06-19 23:37 | disposition home health service (06) | DRG 291 ==
LOC: ED 14:09 → EDHOLD 16:06 → 4E 16:06
PROVIDERS: Emergency Medicine; Hospitalist; Internal Medicine Nephrology; ADMIT Internal Medicine
PROC: 0HBRXZZ Excision of Toe Nail, External Approach (ICD-10-PCS; principal; 2019-06-15)
DX: I13.0 Hypertensive heart and chronic kidney disease with heart failure and stage 1 through stage 4 chronic kidney disease, or unspecified chronic kidney disease (principal); N17.0 Acute kidney failure with tubular necrosis; I50.43 Acute on chronic combined systolic (congestive) and diastolic (congestive) heart failure; N39.0 Urinary tract infection, site not specified; I48.0 Paroxysmal atrial fibrillation; E87.6 Hypokalemia; E03.9 Hypothyroidism, unspecified; M15.9 Polyosteoarthritis, unspecified; N18.9 Chronic kidney disease, unspecified; G89.29 Other chronic pain; M54.9 Dorsalgia, unspecified; I08.2 Rheumatic disorders of both aortic and tricuspid valves; I27.20 Pulmonary hypertension, unspecified; T50.2X5A Adverse effect of carbonic-anhydrase inhibitors, benzothiadiazides and other diuretics, initial encounter; I42.9 Cardiomyopathy, unspecified; B35.1 Tinea unguium; M21.372 Foot drop, left foot; Y92.89 Other specified places as the place of occurrence of the external cause; Z91.19 Patient's noncompliance with other medical treatment and regimen; Z95.2 Presence of prosthetic heart valve; Z86.718 Personal history of other venous thrombosis and embolism; Z79.01 Long term (current) use of anticoagulants; Z88.1 Allergy status to other antibiotic agents; Z88.8 Allergy status to other drugs, medicaments and biological substances; Z79.82 Long term (current) use of aspirin; Z79.899 Other long term (current) drug therapy; Z96.653 Presence of artificial knee joint, bilateral; Z96.612 Presence of left artificial shoulder joint; Z98.41 Cataract extraction status, right eye; Z87.891 Personal history of nicotine dependence; Z82.49 Family history of ischemic heart disease and other diseases of the circulatory system; Z83.49 Family history of other endocrine, nutritional and metabolic diseases

== ENCOUNTER 2019-06-25 14:21 | Inpatient (IN) | payer OTHER ==
[~2019-06-25] VITALS: Ht 173 cm; Wt 80.0 kg
[2019-06-25] VITALS (12 sets, daily range): BP systolic 127–187; BP diastolic 71–116
[~2019-06-25 14:21] MED LIST changes: +AMIODARONE HYD200 MG PO; +CELECOXIB200 M1 PO; +COREG6.25 MG PO; +LIPITOR20 MG PO; +LISINOPRIL5 MG PO; +TRAZODONE50 MG PO; +TRELEGY ELLIPT1 EACH INH; +VITAMIN D325 MCG PO; +XARE15TA PO; +ZYRTEC-D TABLE1 EACH PO
[2019-06-25 15:02] LABS: BASO % 0.2 % (0.0-1.0); LYMPH % 15.2 % (27.0-41.0); MEAN CELL VOLUME 97.4 fl (81.0-99.0); MEAN CORPUSCULAR HGB CONC 31.8 g/dl (33.0-37.0); MONO # 0.5 10*3/uL (0.1-1.0); MONO % 3.6 % (3.0-9.0); NEUT # 10.7 10*3/uL (2.3-7.9); NEUT % 80.6 % (47.0-73.0); PLATELET COUNT AUTOMATED 217 10*3/uL (130-400); RED BLOOD COUNT 4.62 10*6/uL (4.10-5.10); RED CELL DISTRI WIDTH 14.3 % (0-14.5); WHITE BLOOD COUNT 13.2 10*3/uL (4.8-10.8)
[2019-06-25 15:12] LABS: ACT PARTIAL THROMBO TIME 23.1 SECONDS (20.0-32.1); INTERNATIONAL NORM RATIO 1.2 (2.0-3.5)
[2019-06-25 15:18] LABS: ALBUMIN 3.6 gm/dl (3.1-4.5); CREATININE 1.7 mg/dL (0.55-1.02); POTASSIUM 3.8 mmol/L (3.5-5.1); TOTAL PROTEIN 6.6 gm/dL (6.4-8.2)
[2019-06-25 15:21] LABS: TROPONIN I 0.104 ng/ml (<0.045)
--- NOTE | 2019-06-25 18:45 | NUR ---
A 74, admitted to ICCU, under the services of BENJI King MD with a diagnosis of A-FIB W/ RVR. Chief complaint is SHORTNESS OF BREATH. Patient arrived via stretcher from ER. Monitor applied. Initial assessment completed. Vital signs taken and recorded. BENJI KING MD notified of admission to the unit. Orders received. See assessment for past medical history, medications and allergies. Patient and/or family oriented to unit. [facility] ICCU visitation policy reviewed. Clothing/patient valuable form completed. HAYLEY GONZALEZ
--- NOTE | 2019-06-25 19:00 | NUR ---
PATIENTS NEEDS MET AT THIS TIME. PATIENT IS AFIB PER CM, CARDIZEM GTT FLOWING TO TIFF IV, ASYMPTOMATIC. QUESTIONS AND CONCERNS ANSWERED. BED IS LOCKED IN LOWEST POSITION, BED ALARM MAINTAINED. CALL LIGHT WITHIN REACH
--- NOTE | 2019-06-25 19:20 | NUR ---
DR. NASH NOTIFIED OF MED REC UP TO DATE
--- NOTE | 2019-06-25 19:21 | NUR ---
CALLED JENNIFER FOR CONSULT THEY SAID CALL MONIKA. DR. LUNA SAID CALL DR. RODRIGUEZ IN AM.
--- NOTE | 2019-06-25 21:00 | NUR ---
IV started right arm with #24 protective cath after 0 attempts. Site prepped with Chloroprep. Sterile dressing applied. Patient tolerated procedure well. YVETTE ISLAS
--- NOTE | 2019-06-25 22:19 | NUR ---
URINE SPECIMEN SENT TO LAB
[2019-06-25 22:35] LABS: BILIRUBIN NEGATIVE (NEGATIVE); BLOOD NEGATIVE (NEGATIVE); CLARITY CLEAR (CLEAR); COLOR YELLOW (YELLOW); GLUCOSE NEGATIVE (NEGATIVE); KETONE NEGATIVE (NEGATIVE); LEUKO ESTERASE TRACE (NEGATIVE); NITRITE NEGATIVE (NEGATIVE); SPECIFIC GRAVITY 1.025 (1.005-1.030); UROBILINOGEN 0.2 E.U./dl (0.2-1.0)
[2019-06-25 22:36] LABS: BACTERIA 1+
--- NOTE | 2019-06-25 23:40 | NUR ---
AWARE OF CH LA OF 2.8. NO NEW ORDERS AT THIS TIME
[2019-06-26] VITALS (8 sets, daily range): BP systolic 91–125; BP diastolic 49–100
--- NOTE | 2019-06-26 01:00 | NUR ---
CARDIZEM GTT DECREASED TO 5MG/HR, HEART RATE MAINTAINING 80-90'S BPM PER CM
--- NOTE | 2019-06-26 01:48 | NUR ---
CARDIZEM GTT DECREASED TO 2.5. HEART MAINTAINING 70-90'S AT THIS TIME, AFIB. WILL CONTINUE TO MONITOR
--- NOTE | 2019-06-26 04:00 | NUR ---
PATIENT SLEEPING, EYES CLOSED. NO DISTRESS NOTED
[2019-06-26 05:39] LABS: CREATININE 1.7 mg/dL (0.55-1.02); TOTAL PROTEIN 5.4 gm/dL (6.4-8.2)
[2019-06-26 05:47] LABS: THYROID STIM HORMONE (HS) 0.9 uIU/ml (0.358-4.75)
[2019-06-26 06:11] LABS: BASO % 0.2 % (0.0-1.0); HEMATOCRIT 39.3 % (37.0-47.0); LYMPH # 1.4 10*3/uL (1.3-4.4); MEAN CELL VOLUME 96.1 fl (81.0-99.0); MEAN CORPUSCULAR HGB 30.3 pg (27.0-31.0); MEAN CORPUSCULAR HGB CONC 31.6 g/dl (33.0-37.0); MEAN PLATELET VOLUME 11.5 fl (9.6-12.3); MONO # 1.3 10*3/uL (0.1-1.0); MONO % 9.6 % (3.0-9.0); NEUT # 10.3 10*3/uL (2.3-7.9); NEUT % 78.8 % (47.0-73.0); PLATELET COUNT AUTOMATED 168 10*3/uL (130-400); RED BLOOD COUNT 4.09 10*6/uL (4.10-5.10); RED CELL DISTRI WIDTH 14.2 % (0-14.5); WHITE BLOOD COUNT 13.1 10*3/uL (4.8-10.8)
--- NOTE | 2019-06-26 06:30 | NUR ---
CARDIZEM GTT STOPPED AT THIS TIME PER NURSE JUDGEMENT. HEART RATE MAINTAINING 70-80'S AFIB. WILL CONTINUE TO MONITOR
--- NOTE | 2019-06-26 06:37 | NUR ---
INFORMED OF CONSULT. STATED HE WILL SEE HER TODAY.
--- NOTE | 2019-06-26 08:00 | NUR ---
SITTING UP ON SIDE OF BED. REFUSES TO GET INTO CHAIR. VOICES THAT SHE HAS ARTHRITIS IN HANDS AND IT IS EASIER TO STAY IN BED. HEART RATE REMAINS IN THE 80'S A-FIB.
--- NOTE | 2019-06-26 09:00 | NUR ---
Senior Cyber Intelligence Analyst in to talk to patient. Patient states lives at home with her son living in the upstairs. There are 12 steps in the home. Physician: Dr. Gonzalez Rivers Pharmacy: [facility] Home health services: currently has [facility] Patient's level of ADLs: MINIMAL ASSIST Patient has working utilities: yes DME: rollator, power wheelchair Follow-up physician's appointment after d/c: she prefers to make her own follow up appt after discharge Does patient want to access PORTAL?: no Discharge plan discussed with patient. She lives at home with her son living upstairs. She needs minimal assistance with her ADLs and ambulates with a rollator inside her house and uses the power wheelchair outside of her house. She would like an electric wheelchair to get around on the inside of her house and the power wheelchair is a little too big. Explained the electric wheelchair would be about the same size. Discussed home health care services and she currently has [facility] and would like to resume those services upon discharge. When medically stable she will be discharged to home with the resumption of her [facility] care services. She states her son, Forest, will provide transportation on discharge. HOME RODRIGUES
--- NOTE | 2019-06-26 09:13 | NUR ---
MEDICATED WITH ULTRAM 100MG PO ORDERED FOR COMPLAINTS OF ALL OVER PAIN. RATES PAIN A 6 ON A PAIN SCALE OF 1-10
--- NOTE | 2019-06-26 10:00 | NUR ---
VOICES THAT ULTRAM WAS EFFECTIVE.
--- NOTE | 2019-06-26 10:00 | NUR ---
DR. RODRIGUEZ HERE TO SEE PATIENT ON CONSULT
--- NOTE | 2019-06-26 12:28 | NUR ---
GRETCHEN spoke with [facility]. Provided admitting diagnosis and date of admission. Maggie was the individual FLOATER OPERATOR spoke with.
--- NOTE | 2019-06-26 19:17 | NUR ---
CHART CHECK COMPLETED.
--- NOTE | 2019-06-26 21:08 | NUR ---
TRAMADOL AND RESTORIL GIVEN PER PT REQUEST. PATIENT COMPLAINING OF GENERALIZED PAIN IN THE BACK AND LEGS RATED A 4/10. WILL CONTINUE TO MONITOR AND REASSESS.
[2019-06-27] VITALS: BP 109/69
[2019-06-27 03:57] VITALS: BP 100/80
[2019-06-27 08:00] VITALS: BP 121/94
--- NOTE | 2019-06-27 08:05 | NUR ---
PT AAOX3. RESP EASY. VSS. PT DENIES COMPLAINTS AT THIS TIME. NO ACUTE DISTRESS NOTED. WILL CONTINUE TO MONITOR PT.
--- NOTE | 2019-06-27 08:30 | NUR ---
Dining Host in to see patient. No new needs or request at this time. When medically stable she will be discharged to home with the resumption of her [facility].
[2019-06-27 09:36] LABS: BASO % 0.4 % (0.0-1.0); EOS # 0.2 10*3/uL (0.0-0.4); EOS % 1.8 % (1.0-4.0); HEMATOCRIT 40.8 % (37.0-47.0); LYMPH # 1.3 10*3/uL (1.3-4.4); LYMPH % 13.7 % (27.0-41.0); MEAN CELL VOLUME 97.1 fl (81.0-99.0); MEAN CORPUSCULAR HGB 30.7 pg (27.0-31.0); MEAN CORPUSCULAR HGB CONC 31.6 g/dl (33.0-37.0); MEAN PLATELET VOLUME 10.6 fl (9.6-12.3); MONO # 1.1 10*3/uL (0.1-1.0); MONO % 12.4 % (3.0-9.0); NEUT # 6.6 10*3/uL (2.3-7.9); NEUT % 71.4 % (47.0-73.0); PLATELET COUNT AUTOMATED 169 10*3/uL (130-400); RED CELL DISTRI WIDTH 14.2 % (0-14.5); WHITE BLOOD COUNT 9.2 10*3/uL (4.8-10.8)
[2019-06-27 09:53] LABS: CREATININE 1.97 mg/dL (0.55-1.02); POTASSIUM 3.7 mmol/L (3.5-5.1)
[2019-06-27 12:00] VITALS: BP 123/76
--- NOTE | 2019-06-27 13:00 | NUR ---
DR VALENCIA IN TO SEE PT.
--- NOTE | 2019-06-27 15:33 | NUR ---
SUPERVISRO NOTIFIED OF IMC STATUS.
[2019-06-27 16:00] VITALS: BP 113/79
--- NOTE | 2019-06-27 16:24 | NUR ---
PT RESTING. VSS. PT DENIES COMPLAINTS. NO DISTRESS NOTED.
[2019-06-27 20:00] VITALS: BP 104/70
--- NOTE | 2019-06-27 20:00 | NUR ---
PT RESTING IN BED AWAKE, ALERT AND ORIENTED, PLEASANT AND COOPERATIVE, TALKATIVE. RESP NONLABORED. NO ACUTE DISTRESS NOTED. NO COMPLAINTS VOICED. SYLVIE PATENT.
--- NOTE | 2019-06-27 21:10 | NUR ---
MEDICATED WITH RESTORIL AND ULTRAM PER PRN ORDERS FOR C/O PAIN AND INSOMNIA.
--- NOTE | 2019-06-27 22:00 | NUR ---
RESTORIL AND ULTRAM EFFECTIVE FOR PAIN AND INSOMNIA.
[2019-06-28] VITALS: BP 93/60
[2019-06-28 05:52] LABS: CREATININE 2.13 mg/dL (0.55-1.02); POTASSIUM 3.7 mmol/L (3.5-5.1)
--- NOTE | 2019-06-28 06:14 | NUR ---
MEDICATED WITH ULTRAM PER PRN ORDER FOR C/O NECK PAIN.
[2019-06-28 08:00] VITALS: BP 110/72
--- NOTE | 2019-06-28 08:51 | NUR ---
PT EATING BREAKFAST. NO ACUTE DISTRESS NOTED. PT DENIES COMPLAINTS. WILL CONTINUE TO MONITOR PT.
--- NOTE | 2019-06-28 10:00 | NUR ---
Occupational Therapy evaluation completed on ICCU with full evaluation to follow. Recommend occupational therapy per plan of care and SNF versus home with HH SN, OT, and PT pending patient progression upon discharge. Thank you for this referral. Wendy Pandey OTR/L
--- NOTE | 2019-06-28 10:00 | NUR ---
Physical Therapy evaluation completed in ICCU with full evaluation to follow. Recommend physical therapy per plan of care pt could benefit from SNF at discharge due to limited tolance to activity becoming very SOB with minimal amb of only 20ft however pt states she will go home and is agreeable to services PT/OT as well as aides to help clean home. Thank you for this referral. Josefa Lafleur PT
--- NOTE | 2019-06-28 10:02 | NUR ---
PHYSICAL THERAPY AND OCCUPATIONAL THERAPY HERE TO WORK WITH PT.
--- NOTE | 2019-06-28 10:32 | NUR ---
PT SITTING IN THE CHAIR AFTER WORKING WITH PHYSICAL AND OCCUPATIONAL THERAPIES. PT DENIES COMPLAINTS. NO DISTRESS NOTED. WILL CONTINUE TO MONITOR PT.
--- NOTE | 2019-06-28 10:59 | NUR ---
PT BACK TO BED X 1 ASSIST.
[2019-06-28 12:00] VITALS: BP 116/74
--- NOTE | 2019-06-28 13:53 | NUR ---
DR VALENCIA IN TO SEE PT EARLIER. ORDERED FOR DISCHARGE TODAY. PT STATES SHE IS UNABLE TO LEAVE UNTIL HER SON,TURNER, IS FINISHED AT WORK AT MIDNIGHT. RESP. THERAPIST WALKED PT AROUND UNIT TO ASSES FOR HOME OXYGEN. PT DID NOT QUALIFY.
[2019-06-28] MEDS ORDERED: LISINOPRIL2.5 MG PO (14:08)
[2019-06-28] MEDS ORDERED: AMIODARONE HYD200 MG PO (14:08)
--- NOTE | 2019-06-28 15:05 | NUR ---
pt assessed for home oxygen. pt did not qualify. pt at rest spo2 98% ra, hr 69, b/p 116/74, rr 18 pt ambulated spo2 93-95% ra pt at rest spo2 100% ra, hr 74, rr 22 rn notified and notified
[2019-06-28 16:00] VITALS: BP 120/88
--- NOTE | 2019-06-28 16:05 | NUR ---
PT RESTING. RESP EASY. VSS. PT DENIES COMPLAINTS AT THIS TIME. NO DISTRESS NOTED. WILL CONTINUE TO MONITOR PT.
--- NOTE | 2019-06-28 18:09 | NUR ---
PT EATING DINNER. PT DENIES COMPLAINTS. NO DISTRESS NOTED. PT'S SON, TURNER, NOTIFIED OF DISCHARGE. HE WILL TAKE PT HOME AFTER HIS SHIFT TONIGHT.
[2019-06-28 20:00] VITALS: BP 126/72
--- NOTE | 2019-06-28 20:03 | NUR ---
Patient requested assist up to bedside, patient able to ambulate without assist. Denies any chest pain or shortness of breath. Patient awaiting son to be done with work, for discharge. Patient left with call light in reach.
--- NOTE | 2019-06-28 23:47 | NUR ---
Patient left floor with son. Paperwork, signed and copies given.
--- NOTE | 2019-06-29 11:23 | NUR ---
Faxed home health resumption order to [facility] along with clinical and discharge information.
== END 2019-06-28 23:55 | disposition home health service (06) | DRG 291 ==
LOC: ED 14:21 → EDHOLD 15:54 → ICCU 15:54
PROVIDERS: Emergency Medicine; Student in an Organized Health Care Education/Training Program; ADMIT Internal Medicine
DX: I13.0 Hypertensive heart and chronic kidney disease with heart failure and stage 1 through stage 4 chronic kidney disease, or unspecified chronic kidney disease (principal); I50.43 Acute on chronic combined systolic (congestive) and diastolic (congestive) heart failure; N17.9 Acute kidney failure, unspecified; I16.1 Hypertensive emergency; E87.2 Acidosis; N18.9 Chronic kidney disease, unspecified; R73.9 Hyperglycemia, unspecified; R74.0 Nonspecific elevation of levels of transaminase and lactic acid dehydrogenase [LDH]; M19.90 Unspecified osteoarthritis, unspecified site; E03.9 Hypothyroidism, unspecified; I27.20 Pulmonary hypertension, unspecified; E66.9 Obesity, unspecified; I35.0 Nonrheumatic aortic (valve) stenosis; I48.0 Paroxysmal atrial fibrillation; I07.1 Rheumatic tricuspid insufficiency; Z95.2 Presence of prosthetic heart valve; Z86.73 Personal history of transient ischemic attack (TIA), and cerebral infarction without residual deficits; Z86.718 Personal history of other venous thrombosis and embolism; Z96.653 Presence of artificial knee joint, bilateral; Z96.612 Presence of left artificial shoulder joint; Z98.41 Cataract extraction status, right eye; Z87.891 Personal history of nicotine dependence; Z82.49 Family history of ischemic heart disease and other diseases of the circulatory system; Z83.49 Family history of other endocrine, nutritional and metabolic diseases; Z88.1 Allergy status to other antibiotic agents; Z88.8 Allergy status to other drugs, medicaments and biological substances; Z79.899 Other long term (current) drug therapy; Z79.82 Long term (current) use of aspirin; Z79.01 Long term (current) use of anticoagulants; Z68.33 Body mass index [BMI] 33.0-33.9, adult

== ENCOUNTER 2019-07-11 13:40 | Inpatient (IN) | payer OTHER ==
[~2019-07-11] VITALS: Ht 162.5 cm; Wt 85.1 kg
[~2019-07-11 13:40] MED LIST changes: +LISINOPRIL2.5 MG PO
[2019-07-11 13:53] VITALS: BP 116/57
[2019-07-11 14:17] LABS: BASO % 0.5 % (0.0-1.0); EOS # 0.2 10*3/uL (0.0-0.4); EOS % 1.9 % (1.0-4.0); HEMATOCRIT 38.4 % (37.0-47.0); LYMPH # 1.4 10*3/uL (1.3-4.4); LYMPH % 17.7 % (27.0-41.0); MEAN CORPUSCULAR HGB 30.3 pg (27.0-31.0); MEAN CORPUSCULAR HGB CONC 31.5 g/dl (33.0-37.0); MONO # 0.6 10*3/uL (0.1-1.0); MONO % 7.4 % (3.0-9.0); NEUT # 5.9 10*3/uL (2.3-7.9); NEUT % 72.1 % (47.0-73.0); PLATELET COUNT AUTOMATED 147 10*3/uL (130-400); RED CELL DISTRI WIDTH 14.3 % (0-14.5); WHITE BLOOD COUNT 8.1 10*3/uL (4.8-10.8)
[2019-07-11 14:30] LABS: ACT PARTIAL THROMBO TIME 27.7 SECONDS (20.0-32.1); INTERNATIONAL NORM RATIO 1.1 (2.0-3.5)
[2019-07-11 14:35] LABS: CREATININE 1.26 mg/dL (0.55-1.02); POTASSIUM 3.9 mmol/L (3.5-5.1); TOTAL PROTEIN 5.5 gm/dL (6.4-8.2)
[2019-07-11 14:43] LABS: TROPONIN I 0.058 ng/ml (<0.045)
--- NOTE | 2019-07-11 14:50 | NUR ---
PT ASKS FOR PILLOW AND IS PROVIDED WITH ROLLED UP BLANKETS.
--- NOTE | 2019-07-11 15:03 | NUR ---
PT NOW DETACHES ALL MONITORING DEVICES AND SITS IN BEDSIDE CHAIR STATES "I REFUSE TO SIT IN THE BED WITHOUT A PILLOW". I WILL TRY VERY HARD TO LOCATE A PILLOW SOON. PT'S RAPID COVID YTEST IS NEGATIVE.
--- NOTE | 2019-07-11 16:10 | NUR ---
PT UP TO BSC WITHOUT ASSIST. WILL CONTINUE TO MONITOR.
--- NOTE | 2019-07-11 16:18 | NUR ---
PT SITTING ON THE EDGE OF THE BED WITH NO VOICED COMPLAINTS AT THIS TIME.
--- NOTE | 2019-07-11 16:55 | NUR ---
PT PLACED IN HOSPITAL GOWN. PT REFUSES TO BE PUT ON MEDICAID ELIGIBILITY SPECIALIST, PT STATES THEY MAKE ME ITCH.
[2019-07-11 17:45] VITALS: BP 122/62
[2019-07-11 18:20] VITALS: BP 144/91
--- NOTE | 2019-07-11 18:20 | NUR ---
A 74, admitted to , under the services of ROEL Portillo MD with a diagnosis of CHF. Chief complaint is SHORTNESS OF BREATH AND BLE EDEMA. Patient arrived via bed from ER. Monitor applied. Initial assessment completed. Vital signs taken and recorded. ROEL PORTILLO MD notified of admission to the unit. Orders received. See assessment for past medical history, medications and allergies. Patient and/or family oriented to unit. [facility] visitation policy reviewed. Clothing/patient valuable form completed. ABRAHAM JIAME
--- NOTE | 2019-07-11 19:00 | NUR ---
[facility] NOTIFIED THAT PT IS ADMITTED AND PT IS UNAWARE OF MEDICATIONS THAT SHE TAKES AT HOME. PHARMACY STATES THAT THEY WILL FAX MED LIST.
[2019-07-11 19:01] VITALS: BP 144/91
[2019-07-11] MEDS ORDERED: CELECOXIB200 M1 PO (19:31)
--- NOTE | 2019-07-11 19:35 | NUR ---
CONSULT CALLED TO DR RODRIGUEZ. PHYSICIAN STATES THAT HE WILL SEE PT IN THE AM.
[2019-07-11 20:00] VITALS: BP 124/68; BP 84/58
--- NOTE | 2019-07-11 20:07 | NUR ---
EARL FROM LAB CALLED TO NOTIFY THIS RN OF CRITICAL TROPONIN OF 0.085 AT THIS TIME.
--- NOTE | 2019-07-11 20:20 | NUR ---
DR. FRENCH NOTIFIED OF TROPONIN LEVEL 0.085 AT THIS TIME, NO NEW ORDERS. TOLD TO RELAY TO DR. RODRIGUEZ IN THE AM.
--- NOTE | 2019-07-11 20:30 | NUR ---
PATIENT ASSESSMENT COMPLETED WITHOUT INCIDENT AT THIS TIME. PATIENT DENIES ANY CHEST PAIN/PRESSURE, DOES COMPLAIN OF SLIGHT SHORTNESS OF BREATH WITH EXERTION BUT IS ABLE TO CONVERSE CLEARLY AND DOES NOT APPEAR TO BE SHORT OF BREATH. A&O X3 AT THIS TIME, CALL LIGHT WITHIN REACH, WILL CONTINUE TO MONITOR.
[2019-07-12] VITALS: BP 104/61
--- NOTE | 2019-07-12 02:40 | NUR ---
PATIENT RESTING IN BED IN A POSITION OF COMFORT AT THIS TIME, NO SIGNS OR SYMPTOMS OF DISTRESS NOTED AT THIS TIME, CALL LIGHT WITHIN REACH WILL CONTINUE TO MONITOR.
[2019-07-12 07:06] LABS: CREATININE 1.3 mg/dL (0.55-1.02); POTASSIUM 3.4 mmol/L (3.5-5.1)
[2019-07-12 07:13] LABS: THYROID STIM HORMONE (HS) 5.54 uIU/ml (0.358-4.75)
--- NOTE | 2019-07-12 07:36 | NUR ---
NO COMPLAINTS VOICED. REFUSING HEART MONITOR. PHYSICIAN MADE AWARE.
[2019-07-12 08:00] VITALS: BP 103/57
[2019-07-12 12:00] VITALS: BP 105/52
--- NOTE | 2019-07-12 13:49 | NUR ---
ULTRAM GIVEN PER PT PHILLIP FOR C/O CHRONIC BACK PAIN. WILL MONITOR. CALL LIGHT WITHIN REACH.
--- NOTE | 2019-07-12 13:52 | NUR ---
Button Maker in to talk to patient. Patient states lives at HOME with SON LIVING UPSTAIRS. There are NO steps in the home. Physician: ERIK [facility]acy: [facility] [place] [facility]: [facility] Patient's level of ADLs: MINIMAL ASSIST Patient has working utilities: YES DME: ROLLATOR, POWER WHEELCHAIR Follow-up physician's appointment after d/c: PREFERS TO MAKE OWN ON DISCHARGE Does patient want to access PORTAL?: NO Discharge plan PT LIVES AT HOME WITH HER SON LIVING UPSTAIRS. DENIES SHE WILL HAVE ANY NEEDS ON DISCHARGE. DISCUSSED SNF CARE WITH PT DUE TO MULTIBLE ADMISSIONS, BUT PT REFUSES. STATES SHE WILL RETURN HOME WITH [facility] AND SONS HELP. WILL CONTINUE TO FOLLOW. PT STATES TRINIDAD TOMPKINS WILL TAKE HER HOME.. DG YIN
--- NOTE | 2019-07-12 14:30 | NUR ---
PER PT, ULTRAM WAS EFFECTIVE.
[2019-07-12 16:00] VITALS: BP 125/59
[2019-07-12 20:00] VITALS: BP 132/92
--- NOTE | 2019-07-12 21:31 | NUR ---
PATIENT GIVEN ULTRAM FOR PAIN RATED 7 OUT OF 10
--- NOTE | 2019-07-12 22:00 | NUR ---
ULTRAM EFFECTIVE, PATIENT SLEEPING COMFORTABLY IN ROOM
[2019-07-13] VITALS: BP 102/57
--- NOTE | 2019-07-13 04:43 | NUR ---
ULTRAM GIVEN FOR RIGHT SHOULDER RATED A 10 ON THE PAIN SCALE
--- NOTE | 2019-07-13 05:34 | NUR ---
ULTRAM EFFECTIVE PATIENT SLEEPING COMFORTABLY IN ROOM
[2019-07-13 06:47] LABS: CREATININE 1.51 mg/dL (0.55-1.02); POTASSIUM 4.1 mmol/L (3.5-5.1)
[2019-07-13 08:00] VITALS: BP 142/80
--- NOTE | 2019-07-13 08:00 | NUR ---
0800 AM ASSESSMENT COMPLETE. PT RESTING IN BED. DENIES C/O AT PRESENT TIME. BED IN LOW LOCKED POSITION, CALL LIGHT IN REACH. WILL CONTINUE TO MONITOR.
[2019-07-13 12:00] VITALS: BP 144/74
[2019-07-13 16:00] VITALS: BP 137/89
[2019-07-13 20:00] VITALS: BP 131/66
--- NOTE | 2019-07-13 21:11 | NUR ---
ULTRAM GIVEN FOR BACK PAIN DESCRIBED PRESSURE AND RATED A 8.5 OUT OF 10.
--- NOTE | 2019-07-13 22:00 | NUR ---
ULTRAM EFFECTIVE, PATIENT RESTING COMFORTABLY IN ROOM.
--- NOTE | 2019-07-14 07:25 | NUR ---
IN PT ROOM TO COMPLETE ASSESSMENT AND PT IS SLEEPING. WILL CONTINUE TO MONITOR AND COMPLETE ASSESSMENT ONCE PT IS AWAKE
[2019-07-14 08:00] VITALS: BP 148/82
--- NOTE | 2019-07-14 08:28 | NUR ---
IN PT ROOM TO COMPLETE ASSESSMENT. PT STATES THAT SHE IS SOB, BUT ALSO JUST WOKE UP AND WALKED TO THE BATHROOM AND GOT DRESSED. FOOD FOUND IN THE TOILET SO ASKED THE PATIENT IF SHE HAD THROWN UP LAST NIGHT, HE STATES "NO THAT WAS MY LEFT OVER FOOD THAT I WAS NOT EATING" EXPLAINED HOW IF SHE HAS FOOD TO LEAVE IN THE ROOM AND WE WILL THROW AWAY, NOT TO BE FLUSHED IN TOILET. PT WANTS PAIN MEDICATION WITH MORNING MEDICINE. CALL LIGHT WITHIN REACH, WILL CONTINUE TO ORDER
--- NOTE | 2019-07-14 08:58 | NUR ---
PRN ULTRAM PO GIVEN FOR RIGHT HIP PAIN RATING 6/10. WILL MONITOR FOR EFFECTIVENESS
--- NOTE | 2019-07-14 09:46 | NUR ---
IN TO SEE IF PATIENT PAIN MEDICATION WAS EFFECTIVE AND PT SLEEPING. NO DISTRESS NOTED. WILL CONTINUE TO MONITOR
--- NOTE | 2019-07-14 11:33 | NUR ---
Shift chart check completed.
[2019-07-14 13:00] VITALS: BP 118/64
--- NOTE | 2019-07-14 14:19 | NUR ---
DR VALENCIA IN TO SEE THE PATIENT
[2019-07-14 16:00] VITALS: BP 104/78
--- NOTE | 2019-07-14 19:48 | NUR ---
PT MEDICATED WITH PO ULTRAM PER PRN ORDER FOR C/O LOWER BACK PAIN RATED 7/10. WILL MONITOR EFFECTIVENESS. CALL LIGHT IN REACH.
[2019-07-14 20:00] VITALS: BP 99/69
--- NOTE | 2019-07-14 20:40 | NUR ---
EARLIER MEDICATION EFFECTIVE PER PT. WILL MONITOR. CALL LIGHT IN REACH.
[2019-07-14 21:15] VITALS: BP 115/91
--- NOTE | 2019-07-14 22:42 | NUR ---
PT STATES SHE IS REFUSING TO HAVE STRESS TEST DONE UNLESS THEY CAN DO IT BY 0100. STATES SHE CANNOT GO MORE THAN 1 HR WITHOUT DRINKING SOMETHING BECAUSE SHE WILL BEGIN DRY HEAVING AND SHE CANNOT DO IT. RN EXPLAINED THAT THERE IS NO WAY TEST WILL BE DONE BY 0100. STATES WELL "YOU CAN TELL THEM I'M REFUSING THEN." RN ATTEMPTED TO CALL . NO ANSWER. WILL ATTEMPT AGAIN AT LATER POINT IN TIME.
[2019-07-14 22:45] VITALS: BP 109/53
[2019-07-15] VITALS: BP 95/65
--- NOTE | 2019-07-15 02:10 | NUR ---
PT UP TO BSC. DENIES ANY NEEDS. WILL MONITOR. CALL LIGHT IN REACH.
--- NOTE | 2019-07-15 03:46 | NUR ---
PT ASLEEP IN BED. NO S/S OF DISTRESS NOTED. WILL MONITOR. CALL LIGHT IN REACH.
[2019-07-15 04:35] VITALS: BP 124/88
--- NOTE | 2019-07-15 04:39 | NUR ---
PT CALLED RN IN STATING "I CAN'T BREATHE." VITALS TAKEN & STABLE. POX 98% ON ROOM AIR. PT DOES NOT APPEAR TO BE IN ANY DISTRESS. LUNG SOUNDS CLEAR T/O. PT REQUESTING BREATHING TX. WILL NOTIFY OF PATIENT'S REQUEST.
--- NOTE | 2019-07-15 05:53 | NUR ---
[facility] SPECIALIST FROM [facility] CALLED. STATES TRANSFER IS A "NO GO" IT STANDS RIGHT NOW PER [facility] STAMP PAD MAKER. NO REASON GIVEN AT THIS TIME.
--- NOTE | 2019-07-15 05:59 | NUR ---
ATTEMPTED TO CALL TO UPDATE HIM ON PATIENT'S REFUSAL OF STRESS TEST AND REQUEST FOR BREATHING TX. NO ANSWER. WILL ATTEMPT AT LATER TIME.
--- NOTE | 2019-07-15 06:14 | NUR ---
PT ASLEEP IN BED, EASILY AROUSABLE. NO S/S OF DISTRESS NOTED. WILL MONITOR. CALL LIGHT IN REACH.
[2019-07-15 06:29] LABS: BASO % 0.3 % (0.0-1.0); EOS # 0.2 10*3/uL (0.0-0.4); EOS % 2.4 % (1.0-4.0); HEMATOCRIT 36.4 % (37.0-47.0); LYMPH # 1.2 10*3/uL (1.3-4.4); LYMPH % 19.1 % (27.0-41.0); MEAN CELL VOLUME 97.1 fl (81.0-99.0); MEAN CORPUSCULAR HGB 29.9 pg (27.0-31.0); MEAN CORPUSCULAR HGB CONC 30.8 g/dl (33.0-37.0); MEAN PLATELET VOLUME 10.8 fl (9.6-12.3); MONO # 0.6 10*3/uL (0.1-1.0); MONO % 9.1 % (3.0-9.0); NEUT # 4.3 10*3/uL (2.3-7.9); NEUT % 68.8 % (47.0-73.0); PLATELET COUNT AUTOMATED 137 10*3/uL (130-400); RED BLOOD COUNT 3.75 10*6/uL (4.10-5.10); RED CELL DISTRI WIDTH 14.8 % (0-14.5); WHITE BLOOD COUNT 6.2 10*3/uL (4.8-10.8)
[2019-07-15 06:31] LABS: CREATININE 1.6 mg/dL (0.55-1.02); POTASSIUM 4.1 mmol/L (3.5-5.1)
--- NOTE | 2019-07-15 07:31 | NUR ---
NOTIFIED OF PT REFUSING STRESS. PER ALLOW ICE CHIPS AND ORDER D5 1/2NS @ 60 ML/HR. PT UPDATED ON THIS PLAN. REFUSING. RN CALLED [facility]. PT CAN HAVE SOMETHING TO EAT RIGHT NOW, BUT MUST REMAIN NPO FOR A MINIMUM OF 4 HRS PRIOR TO TEST. RN OFFERED BOXED LUNCH, CEREAL, ETC FROM FLOOR KITCHEN. PT REFUSING TO PARTICIPATE BECAUSE SANDWICH IN BOXED LUNCH MADE WITH WHITE BREAD. REFUSING ALL OTHER OPTIONS. NOTIFIED OF THIS. INSTRUCTED TO SEE IF [facility] CAN STRESS HER EARLIER. MADE AWARE THAT PT REFUSING TO BE NPO ALL NIGHT. STATES SHE JUST HAD "SNACKED" ABOUT 1 HR AGO. INSTRUCTED TO SEE WHEN [facility] COULD BE AVAILABLE HE IS ABLE TO COME IN EARLY. PER [facility], EARLIEST THEY COULD DO WOULD BE 1030. PT STILL REFUSING. STATES SHE WILL DO IT ANOTHER DAY.
--- NOTE | 2019-07-15 07:39 | NUR ---
IN PT ROOM TO COMPLETE ASSESSMENT, PT STATES "I FEEL BAD NOT GETTING THE STRESS TEST DONE TODAY I JUST AM TOO STRESSED OUT, AND CANT GO THAT LONG WITH NO FOOD IN MY STOMACH". DESCRIBED TO THE PATIENT THAT [facility] STATES THAT IF SHE CAN ATLEAST GO 4 HOURS WITHOUT EATING THAT THEY WOULD STILL BE ABLE TO DO IT, BUT SHE IS JUST COMPLETELY REFUSING.
--- NOTE | 2019-07-15 07:40 | NUR ---
NUCLEAR MEDICINE ON FLOOR AND STATES THAT PATIENT IS GOING TO HAVE STRESS TEST DONE, SHE JUST SPOKE TO DR VALENCIA REGARDING THIS. NEW ORDER ADDED
--- NOTE | 2019-07-15 07:42 | NUR ---
CALLED DR VALENCIA TO LET HIM KNOW THAT PATIENT IS REFUSING HER STERSS TEST, HE STATES THAT IS FINE TO CANCEL THE TEST
[2019-07-15 08:00] VITALS: BP 138/88
--- NOTE | 2019-07-15 08:09 | NUR ---
PT OFF FLOOR TO STRESS TEST
--- NOTE | 2019-07-15 09:10 | NUR ---
INFORMED CONSNET SIGNED FOR LEXISCAN STRESS TEST WITH DR. VALENCIA. RESTING EKG A-FIB WITH PVC'S, HR 82, BP 138/78. PULSE OX 100% AND LUNGS CLEAR BILATERALLY. COMPLETED ONE MINUTE OF LEXISCAN PROTOCOL RECEIVING LEXISCAN 0.4MG OVER 10 SECONDS. PVC'S NOTED WITH NON DIAGNOSTIC ST CHANGES. PT C/O HEADACHE AND NAUSA. BECAME VERY UNCOROPERATIVE PAST INJECTION STATING WE LIED TO HER AND NEVER TOLD HER ABOUT THE SIDE EFFECTS AND SHE SHOULD OF NEVER HAD THIS TEST. REFUSED TO HAVE BP'S CHECK POST INJECTION. ENCOURAGED TO DRINK COKE TO HELP WITH SYMPTOMS. REFUSING TO DRINK POP AND ICE TEA. DR. VALENCIA TALKING WITH PT AND SAID THAT WE WOULD GET HER SOMETHING FOR HER HEADACHE. SPOKE WITH NURSE ON FLOOR CONCERNING PAIN MEDICATION. NURSE BROUGHT DOWN ULTRAM FOR HEADACHE. PT CONTINOUS TO HAVE MULTIPLE C/O. REASSURED THAT MAJORITY OF TEST COMPLETED AND THAT ALL SHE NEEDED WAS POST PICTURES. PT STATES SHE FEELS WARM LIKE SHE HAS A FEVER NOW STILL HAS HEACHACE. DR. VALENCIA REQUEST BLOOD PRESSURE BUT PT REFUSED. REMAINS UNCOROPERATIVE AND INSIST ON RETURNING TO HER ROOM. DR. VALENCIA CALLED ON CELL PHONE AND INFORMED THAT PT IS REFUSING SECOND SET OF PICTURES. STATES HE WILL COME BACK AND TALK WITH HER. ATTEMPTS MADE TO EXPLAIN TO PT THAT THE SECOND SET OF PICTURES NEEDED TO COMPLETE TEST. PT TRIED TO LEAVE NUMEROUS TIMES VIA WHEELCHAIR. DR. VALENCIA ARRIVED BACK TO TALK TO PT. PT CONTINOUS TO BE VERY AGGITATED. DR. VALENCIA ENCOURAGED HER TO GO BACK TO ROOM AND EAT BREAKFAST AND THEN RETURN TO DEPARTMENT FOR PICTURES. PT'S SON CALLED CONCERNING SITUATION AND MESSAGE LEFT TO CALL HIS MOTHER AND TRY TO ENCOURAGE HER TO COMPLETE TEST. PT RETURNED TO ROOM VIA WHEELCHAIR WITH NURSE.
--- NOTE | 2019-07-15 09:24 | NUR ---
PT GIVEN PRN ULTRAM PO DUE TO COMPLAINTS OF HEADACHE AND PAIN. WILL CONTINUE TO MONITOR FOR EFFECTIVENESS
--- NOTE | 2019-07-15 09:52 | NUR ---
PT BACK TO FLOOR FROM STRESS TEST, PT DID NOT STAY TO HAVE PICTURES TAKEN. PT YELLING AT ALL NURSES AND DR TALBOT. VERY FRUSTRATED AND INSULTING EVERYONE THAT IS INVOLVED WITH HER. IN BED, BREAKFAST HERE AND GOING TO EAT. PT NEEDS TO BE BACK DOWN TO CARDIAC LAB IN AN HOUR TO GET PICS TAKEN
--- NOTE | 2019-07-15 13:07 | NUR ---
IN PT ROOM AT THIS TIME TO SEE HOW PATIENT WAS FEELING SHE STATES THAT SHE IS LEAVING AT 1400. I TOLD HER THAT DR VALENCIA HAS NOT PUT THE DISCHARGE ORDERS IN BECAUSE THE STRESS TEST RESULTS ARE NOT IN BACK YET. PT STATES THAT SHE HAS TO LEAVE AT 1400 AND WILL SIGN PAPERS TO LEAVE AMA
--- NOTE | 2019-07-15 13:46 | NUR ---
TOOK PT IV OUT, PT SIGNED AMA PAPERS AND STATES SHE CAN NOT STAY ANY LONGER DUE TO HER SON NEEDING TO PICK HER UP AT A CERTAIN TIME. PT HAS NO FURTHER QUESTIONS AT THIS TIME
--- NOTE | 2019-07-15 14:09 | NUR ---
PT LEAVING THE FLOOR NOW WITH ALL OF HER BELONGINGS
--- NOTE | 2019-07-15 15:12 | NUR ---
RESUME HH ORDER SENT TO [facility].
--- NOTE | 2019-07-16 11:58 | NUR ---
PATIENT INSURANCE REQUESTED ADDITONAL CLINICAL INFORMAITON. [facility] FAXED CLINICALS TO [facility] AT [phone].
== END 2019-07-15 14:09 | disposition home health service (06) | DRG 291 ==
LOC: ED 13:40 → 5E 16:48 → EDHOLD 16:48 → 5E 17:19
PROVIDERS: Emergency Medicine; ADMIT Internal Medicine
PROC: 4A02XM4 Measurement of Cardiac Total Activity, External Approach (ICD-10-PCS; principal; 2019-07-15)
PROC: 3E073KZ Introduction of Other Diagnostic Substance into Coronary Artery, Percutaneous Approach (ICD-10-PCS; principal; 2019-07-15)
DX: I13.0 Hypertensive heart and chronic kidney disease with heart failure and stage 1 through stage 4 chronic kidney disease, or unspecified chronic kidney disease (principal); N17.0 Acute kidney failure with tubular necrosis; I50.43 Acute on chronic combined systolic (congestive) and diastolic (congestive) heart failure; I62.9 Nontraumatic intracranial hemorrhage, unspecified; Z96.653 Presence of artificial knee joint, bilateral; E03.9 Hypothyroidism, unspecified; M19.90 Unspecified osteoarthritis, unspecified site; I27.20 Pulmonary hypertension, unspecified; I48.91 Unspecified atrial fibrillation; E66.9 Obesity, unspecified; R10.813 Right lower quadrant abdominal tenderness; R79.89 Other specified abnormal findings of blood chemistry; N18.9 Chronic kidney disease, unspecified; G89.29 Other chronic pain; Z96.612 Presence of left artificial shoulder joint; Z88.1 Allergy status to other antibiotic agents; Z88.8 Allergy status to other drugs, medicaments and biological substances; Z90.49 Acquired absence of other specified parts of digestive tract; Z95.2 Presence of prosthetic heart valve; Z98.41 Cataract extraction status, right eye; Z87.891 Personal history of nicotine dependence; Z82.49 Family history of ischemic heart disease and other diseases of the circulatory system; Z83.49 Family history of other endocrine, nutritional and metabolic diseases; Z86.73 Personal history of transient ischemic attack (TIA), and cerebral infarction without residual deficits; Z86.718 Personal history of other venous thrombosis and embolism; Z79.82 Long term (current) use of aspirin; Z79.899 Other long term (current) drug therapy; Z68.32 Body mass index [BMI] 32.0-32.9, adult

== ENCOUNTER 2019-07-22 18:12 | Emergency (ER) | payer OTHER ==
[~2019-07-22] VITALS: Ht 154.9 cm; Wt 9.1 kg
== END 2019-07-22 22:06 | disposition left against medical advice (07) ==
LOC: ED 18:12
DX: R26.2 Difficulty in walking, not elsewhere classified (principal); Z53.21 Procedure and treatment not carried out due to patient leaving prior to being seen by health care provider

== ENCOUNTER 2019-08-03 17:24 | Emergency (ER) | payer OTHER ==
[2019-08-03 17:25] VITALS: BP 157/73
[2019-08-03 18:06] LABS: BASO % 0.5 % (0.0-1.0); EOS # 0.1 10*3/uL (0.0-0.4); EOS % 1.2 % (1.0-4.0); HEMATOCRIT 39.2 % (37.0-47.0); LYMPH # 1.7 10*3/uL (1.3-4.4); MEAN CELL VOLUME 98.2 fl (81.0-99.0); MEAN CORPUSCULAR HGB 30.6 pg (27.0-31.0); MEAN CORPUSCULAR HGB CONC 31.1 g/dl (33.0-37.0); MEAN PLATELET VOLUME 9.7 fl (9.6-12.3); MONO # 0.7 10*3/uL (0.1-1.0); MONO % 8.3 % (3.0-9.0); NEUT # 5.8 10*3/uL (2.3-7.9); NEUT % 69.1 % (47.0-73.0); PLATELET COUNT AUTOMATED 211 10*3/uL (130-400); RED BLOOD COUNT 3.99 10*6/uL (4.10-5.10); RED CELL DISTRI WIDTH 16.8 % (0-14.5); WHITE BLOOD COUNT 8.5 10*3/uL (4.8-10.8)
[2019-08-03 18:19] LABS: ACT PARTIAL THROMBO TIME 25.8 SECONDS (20.0-32.1); INTERNATIONAL NORM RATIO 1.1 (2.0-3.5)
[2019-08-03 18:22] LABS: ALBUMIN 2.8 gm/dl (3.1-4.5); CREATININE 1.5 mg/dL (0.55-1.02); TOTAL PROTEIN 5.8 gm/dL (6.4-8.2); TROPONIN I 0.028 ng/ml (<0.045)
== END 2019-08-03 18:47 | disposition left against medical advice (07) ==
LOC: ED 17:24
PROVIDERS: Emergency Medicine
DX: J44.1 Chronic obstructive pulmonary disease with (acute) exacerbation (principal); I10 Essential (primary) hypertension; J45.909 Unspecified asthma, uncomplicated; M19.90 Unspecified osteoarthritis, unspecified site; E03.9 Hypothyroidism, unspecified; I48.91 Unspecified atrial fibrillation; Z88.8 Allergy status to other drugs, medicaments and biological substances; Z79.899 Other long term (current) drug therapy; Z90.49 Acquired absence of other specified parts of digestive tract; Z87.891 Personal history of nicotine dependence

== ENCOUNTER 2019-08-05 14:09 | Inpatient (IN) | payer OTHER ==
[~2019-08-05] VITALS: Ht 156.2 cm; Wt 83.1 kg
[2019-08-05 14:40] VITALS: BP 145/101
[2019-08-05 15:18] LABS: BASO # 0.1 10*3/uL (0.0-0.1); BASO % 0.6 % (0.0-1.0); EOS # 0.1 10*3/uL (0.0-0.4); EOS % 1.3 % (1.0-4.0); HEMATOCRIT 39.9 % (37.0-47.0); LYMPH # 1.7 10*3/uL (1.3-4.4); LYMPH % 21.4 % (27.0-41.0); MEAN CELL VOLUME 100.5 fl (81.0-99.0); MEAN CORPUSCULAR HGB CONC 30.8 g/dl (33.0-37.0); MONO # 0.6 10*3/uL (0.1-1.0); MONO % 7.5 % (3.0-9.0); NEUT # 5.4 10*3/uL (2.3-7.9); NEUT % 68.6 % (47.0-73.0); PLATELET COUNT AUTOMATED 176 10*3/uL (130-400); RED BLOOD COUNT 3.97 10*6/uL (4.10-5.10); RED CELL DISTRI WIDTH 16.8 % (0-14.5); WHITE BLOOD COUNT 7.9 10*3/uL (4.8-10.8)
[2019-08-05 15:30] LABS: ACT PARTIAL THROMBO TIME 26.1 SECONDS (20.0-32.1); INTERNATIONAL NORM RATIO 1.1 (2.0-3.5)
[2019-08-05 15:33] LABS: CREATININE 1.51 mg/dL (0.55-1.02); POTASSIUM 4.3 mmol/L (3.5-5.1); TROPONIN I 0.025 ng/ml (<0.045)
[2019-08-05 16:22] VITALS: BP 171/105
[2019-08-05 17:19] VITALS: BP 154/93
[2019-08-05] MEDS ORDERED: VENTOLIN 02.5 MG/3 M INH (17:32)
[2019-08-05] MEDS ORDERED: AMIODARONE HYD200 MG PO (17:34)
[2019-08-05] MEDS ORDERED: OMEPRAZOLE40 MG PO (17:39)
[2019-08-05 20:00] VITALS: BP 126/65
[2019-08-06] VITALS: BP 110/57
[2019-08-06 06:46] LABS: BASO % 0.6 % (0.0-1.0); EOS # 0.1 10*3/uL (0.0-0.4); EOS % 2.1 % (1.0-4.0); HEMATOCRIT 39.2 % (37.0-47.0); LYMPH # 1.1 10*3/uL (1.3-4.4); LYMPH % 22.4 % (27.0-41.0); MEAN CELL VOLUME 97.8 fl (81.0-99.0); MEAN CORPUSCULAR HGB 30.4 pg (27.0-31.0); MEAN CORPUSCULAR HGB CONC 31.1 g/dl (33.0-37.0); MEAN PLATELET VOLUME 10.3 fl (9.6-12.3); MONO # 0.5 10*3/uL (0.1-1.0); MONO % 9.7 % (3.0-9.0); NEUT # 3.1 10*3/uL (2.3-7.9); NEUT % 64.4 % (47.0-73.0); PLATELET COUNT AUTOMATED 125 10*3/uL (130-400); RED BLOOD COUNT 4.01 10*6/uL (4.10-5.10); WHITE BLOOD COUNT 4.9 10*3/uL (4.8-10.8)
[2019-08-06 06:55] LABS: CREATININE 1.53 mg/dL (0.55-1.02)
[2019-08-06 08:00] VITALS: BP 135/83
[2019-08-06 10:21] LABS: BILIRUBIN NEGATIVE (NEGATIVE); CLARITY SL CLOUDY (CLEAR); COLOR YELLOW (YELLOW); GLUCOSE NEGATIVE (NEGATIVE)
[2019-08-06 10:22] LABS: BLOOD NEGATIVE (NEGATIVE); KETONE NEGATIVE (NEGATIVE); LEUKO ESTERASE NEGATIVE (NEGATIVE); NITRITE NEGATIVE (NEGATIVE); UROBILINOGEN 0.2 E.U./dl (0.2-1.0)
[2019-08-06 10:25] LABS: BACTERIA 1+; EPITHELIAL CELLS 16-20; MUCOUS TRACE
[2019-08-06 12:00] VITALS: BP 141/87
[2019-08-06 16:00] VITALS: BP 138/88
[2019-08-06 20:00] VITALS: BP 150/94
[2019-08-07] VITALS: BP 124/76
== END 2019-08-07 06:58 | disposition other institution (70) | DRG 292 ==
LOC: ED 14:09 → 4E 15:48 → EDHOLD 15:48 → 4E 16:01
PROVIDERS: Emergency Medicine; Internal Medicine Nephrology; ADMIT Internal Medicine
DX: I11.0 Hypertensive heart disease with heart failure (principal); I48.20 Chronic atrial fibrillation, unspecified; N17.9 Acute kidney failure, unspecified; E66.9 Obesity, unspecified; M19.90 Unspecified osteoarthritis, unspecified site; R94.39 Abnormal result of other cardiovascular function study; E03.9 Hypothyroidism, unspecified; Z96.652 Presence of left artificial knee joint; E78.5 Hyperlipidemia, unspecified; G89.29 Other chronic pain; Z96.612 Presence of left artificial shoulder joint; Z86.718 Personal history of other venous thrombosis and embolism; Z88.1 Allergy status to other antibiotic agents; Z88.8 Allergy status to other drugs, medicaments and biological substances; Z90.49 Acquired absence of other specified parts of digestive tract; Z95.2 Presence of prosthetic heart valve; Z98.41 Cataract extraction status, right eye; Z87.891 Personal history of nicotine dependence; Z82.49 Family history of ischemic heart disease and other diseases of the circulatory system; Z83.49 Family history of other endocrine, nutritional and metabolic diseases; Z86.73 Personal history of transient ischemic attack (TIA), and cerebral infarction without residual deficits; Z87.440 Personal history of urinary (tract) infections; Z79.899 Other long term (current) drug therapy; Z79.82 Long term (current) use of aspirin; Z79.01 Long term (current) use of anticoagulants; Z68.34 Body mass index [BMI] 34.0-34.9, adult; I50.33 Acute on chronic diastolic (congestive) heart failure

== ENCOUNTER 2019-08-13 10:28 | Emergency (ER) | payer OTHER ==
[~2019-08-13] VITALS: Ht 154.9 cm; Wt 72.6 kg
[~2019-08-13 10:28] MED LIST changes: +OMEPRAZOLE40 MG PO; +VENTOLIN 02.5 MG/3 M INH
[2019-08-13 10:32] VITALS: BP 121/95
[2019-08-13 11:02] LABS: BASO % 0.4 % (0.0-1.0); EOS % 0.2 % (1.0-4.0); HEMATOCRIT 37.8 % (37.0-47.0); LYMPH # 0.9 10*3/uL (1.3-4.4); LYMPH % 8.8 % (27.0-41.0); MEAN CELL VOLUME 95.7 fl (81.0-99.0); MEAN CORPUSCULAR HGB 30.9 pg (27.0-31.0); MEAN CORPUSCULAR HGB CONC 32.3 g/dl (33.0-37.0); MEAN PLATELET VOLUME 10.3 fl (9.6-12.3); MONO # 0.7 10*3/uL (0.1-1.0); MONO % 6.9 % (3.0-9.0); NEUT # 8.7 10*3/uL (2.3-7.9); NEUT % 83.1 % (47.0-73.0); PLATELET COUNT AUTOMATED 241 10*3/uL (130-400); RED BLOOD COUNT 3.95 10*6/uL (4.10-5.10); RED CELL DISTRI WIDTH 17.4 % (0-14.5); WHITE BLOOD COUNT 10.5 10*3/uL (4.8-10.8)
[2019-08-13 11:16] LABS: ALBUMIN 3.2 gm/dl (3.1-4.5); CREATININE 1.88 mg/dL (0.55-1.02); POTASSIUM 4.3 mmol/L (3.5-5.1)
[2019-08-13] MEDS ORDERED: ZOFRAN4 MG PO (13:23)
== END 2019-08-13 13:35 | disposition home or self-care (01) ==
LOC: ED 10:28
PROVIDERS: Emergency Medicine
DX: R11.2 Nausea with vomiting, unspecified (principal); M19.90 Unspecified osteoarthritis, unspecified site; I10 Essential (primary) hypertension; J45.909 Unspecified asthma, uncomplicated; Z88.8 Allergy status to other drugs, medicaments and biological substances; Z79.899 Other long term (current) drug therapy; Z79.82 Long term (current) use of aspirin; Z90.49 Acquired absence of other specified parts of digestive tract

== ENCOUNTER 2019-08-19 00:36 | Emergency (ER) | payer OTHER ==
[~2019-08-19] VITALS: Ht 154.9 cm; Wt 87.5 kg
[~2019-08-19 00:36] MED LIST changes: +ZOFRAN4 MG PO
[2019-08-19 01:14] LABS: BASO % 0.2 % (0.0-1.0); EOS # 0.2 10*3/uL (0.0-0.4); EOS % 2.5 % (1.0-4.0); LYMPH # 1.3 10*3/uL (1.3-4.4); MEAN CELL VOLUME 96.1 fl (81.0-99.0); MEAN CORPUSCULAR HGB CONC 31.3 g/dl (33.0-37.0); MEAN PLATELET VOLUME 9.2 fl (9.6-12.3); MONO # 0.8 10*3/uL (0.1-1.0); MONO % 8.4 % (3.0-9.0); NEUT # 6.9 10*3/uL (2.3-7.9); NEUT % 74.3 % (47.0-73.0); PLATELET COUNT AUTOMATED 213 10*3/uL (130-400); RED BLOOD COUNT 4.06 10*6/uL (4.10-5.10); RED CELL DISTRI WIDTH 16.9 % (0-14.5); WHITE BLOOD COUNT 9.3 10*3/uL (4.8-10.8)
[2019-08-19 01:32] LABS: CREATININE 1.64 mg/dL (0.55-1.02); TOTAL PROTEIN 5.8 gm/dL (6.4-8.2); TROPONIN I 0.034 ng/ml (<0.045)
[2019-08-19 03:20] LABS: CLARITY CLEAR (CLEAR); COLOR YELLOW (YELLOW)
[2019-08-19 03:21] LABS: BILIRUBIN NEGATIVE (NEGATIVE); BLOOD NEGATIVE (NEGATIVE); GLUCOSE NEGATIVE (NEGATIVE); KETONE NEGATIVE (NEGATIVE); NITRITE NEGATIVE (NEGATIVE); SPECIFIC GRAVITY 1.015 (1.005-1.030); UROBILINOGEN 0.2 E.U./dl (0.2-1.0)
[2019-08-19 03:22] LABS: LEUKO ESTERASE 1+ (NEGATIVE)
[2019-08-19 03:28] LABS: BACTERIA 1+
[2019-08-19 04:42] VITALS: BP 143/92
== END 2019-08-19 05:46 | disposition home or self-care (01) ==
LOC: ED 00:36
PROVIDERS: Emergency Medicine
DX: R11.2 Nausea with vomiting, unspecified (principal); I48.91 Unspecified atrial fibrillation; I13.0 Hypertensive heart and chronic kidney disease with heart failure and stage 1 through stage 4 chronic kidney disease, or unspecified chronic kidney disease; N18.3 Chronic kidney disease, stage 3 (moderate); E03.9 Hypothyroidism, unspecified; M19.90 Unspecified osteoarthritis, unspecified site; J45.909 Unspecified asthma, uncomplicated; Z88.1 Allergy status to other antibiotic agents; Z88.8 Allergy status to other drugs, medicaments and biological substances; Z79.899 Other long term (current) drug therapy; Z79.82 Long term (current) use of aspirin; Z87.891 Personal history of nicotine dependence

== ENCOUNTER 2019-08-29 15:24 | Inpatient (IN) | payer OTHER ==
[~2019-08-29] VITALS: Ht 155 cm; Wt 78.6 kg
[2019-08-29 15:30] VITALS: BP 156/87
[2019-08-29 16:54] LABS: BASO # 0.1 10*3/uL (0.0-0.1); BASO % 0.8 % (0.0-1.0); EOS # 0.1 10*3/uL (0.0-0.4); EOS % 0.7 % (1.0-4.0); HEMATOCRIT 40.3 % (37.0-47.0); LYMPH # 1.2 10*3/uL (1.3-4.4); LYMPH % 13.2 % (27.0-41.0); MEAN CORPUSCULAR HGB 29.5 pg (27.0-31.0); MEAN CORPUSCULAR HGB CONC 30.8 g/dl (33.0-37.0); MEAN PLATELET VOLUME 9.9 fl (9.6-12.3); MONO # 0.8 10*3/uL (0.1-1.0); MONO % 8.5 % (3.0-9.0); NEUT # 6.7 10*3/uL (2.3-7.9); NEUT % 76.1 % (47.0-73.0); PLATELET COUNT AUTOMATED 150 10*3/uL (130-400); RED CELL DISTRI WIDTH 16.9 % (0-14.5); WHITE BLOOD COUNT 8.8 10*3/uL (4.8-10.8)
[2019-08-29 17:03] LABS: INTERNATIONAL NORM RATIO 1.1 (2.0-3.5)
[2019-08-29 17:11] LABS: ALBUMIN 3.1 gm/dl (3.1-4.5); CREATININE 1.74 mg/dL (0.55-1.02); POTASSIUM 3.6 mmol/L (3.5-5.1); TOTAL PROTEIN 6.2 gm/dL (6.4-8.2)
[2019-08-29 17:14] LABS: TROPONIN I 0.083 ng/ml (<0.045)
[2019-08-29 18:27] VITALS: BP 172/118
[2019-08-29 20:10] VITALS: BP 145/88
[2019-08-30 06:39] LABS: BASO % 0.4 % (0.0-1.0); EOS # 0.2 10*3/uL (0.0-0.4); EOS % 2.1 % (1.0-4.0); HEMATOCRIT 39.8 % (37.0-47.0); LYMPH % 13.4 % (27.0-41.0); MEAN CELL VOLUME 95.9 fl (81.0-99.0); MEAN CORPUSCULAR HGB 28.9 pg (27.0-31.0); MEAN CORPUSCULAR HGB CONC 30.2 g/dl (33.0-37.0); MEAN PLATELET VOLUME 10.1 fl (9.6-12.3); MONO # 0.6 10*3/uL (0.1-1.0); MONO % 8.6 % (3.0-9.0); NEUT # 5.4 10*3/uL (2.3-7.9); NEUT % 74.7 % (47.0-73.0); PLATELET COUNT AUTOMATED 131 10*3/uL (130-400); RED BLOOD COUNT 4.15 10*6/uL (4.10-5.10); RED CELL DISTRI WIDTH 17.1 % (0-14.5); WHITE BLOOD COUNT 7.2 10*3/uL (4.8-10.8)
[2019-08-30 08:00] VITALS: BP 136/87
[2019-08-30 08:00] LABS: ALBUMIN 2.5 gm/dl (3.1-4.5); CREATININE 1.81 mg/dL (0.55-1.02); POTASSIUM 3.3 mmol/L (3.5-5.1); TOTAL PROTEIN 5.6 gm/dL (6.4-8.2)
[2019-08-30 12:30] VITALS: BP 124/68
[2019-08-30 16:00] VITALS: BP 140/70
[2019-08-30 17:10] LABS: URINE CREATININE RANDOM 58.2 mg/dL
[2019-08-30 20:00] VITALS: BP 125/88
[2019-08-31] VITALS: BP 109/54
[2019-08-31 06:06] LABS: BASO % 0.5 % (0.0-1.0); EOS # 0.1 10*3/uL (0.0-0.4); EOS % 1.5 % (1.0-4.0); HEMATOCRIT 38.5 % (37.0-47.0); LYMPH # 0.6 10*3/uL (1.3-4.4); LYMPH % 9.6 % (27.0-41.0); MEAN CELL VOLUME 97.2 fl (81.0-99.0); MEAN CORPUSCULAR HGB 29.8 pg (27.0-31.0); MEAN CORPUSCULAR HGB CONC 30.6 g/dl (33.0-37.0); MEAN PLATELET VOLUME 9.9 fl (9.6-12.3); MONO # 0.4 10*3/uL (0.1-1.0); MONO % 5.5 % (3.0-9.0); NEUT # 5.4 10*3/uL (2.3-7.9); NEUT % 82.4 % (47.0-73.0); PLATELET COUNT AUTOMATED 121 10*3/uL (130-400); RED BLOOD COUNT 3.96 10*6/uL (4.10-5.10); RED CELL DISTRI WIDTH 17.3 % (0-14.5); WHITE BLOOD COUNT 6.6 10*3/uL (4.8-10.8)
[2019-08-31 06:10] LABS: ALBUMIN 2.7 gm/dl (3.1-4.5); CREATININE 1.77 mg/dL (0.55-1.02); POTASSIUM 3.3 mmol/L (3.5-5.1); TOTAL PROTEIN 5.4 gm/dL (6.4-8.2)
[2019-08-31 12:00] VITALS: BP 112/79
[2019-08-31 16:00] VITALS: BP 94/56
[2019-08-31 20:00] VITALS: BP 113/43
[2019-09-01] VITALS: BP 101/59
[2019-09-01 06:21] LABS: BASO % 0.4 % (0.0-1.0); EOS # 0.1 10*3/uL (0.0-0.4); EOS % 2.4 % (1.0-4.0); HEMATOCRIT 36.6 % (37.0-47.0); LYMPH # 0.9 10*3/uL (1.3-4.4); MEAN CELL VOLUME 95.6 fl (81.0-99.0); MEAN CORPUSCULAR HGB CONC 30.3 g/dl (33.0-37.0); MEAN PLATELET VOLUME 10.3 fl (9.6-12.3); MONO # 0.3 10*3/uL (0.1-1.0); MONO % 7.5 % (3.0-9.0); NEUT # 3.1 10*3/uL (2.3-7.9); PLATELET COUNT AUTOMATED 119 10*3/uL (130-400); RED BLOOD COUNT 3.83 10*6/uL (4.10-5.10); RED CELL DISTRI WIDTH 17.2 % (0-14.5); WHITE BLOOD COUNT 4.5 10*3/uL (4.8-10.8)
[2019-09-01 06:42] LABS: ALBUMIN 2.6 gm/dl (3.1-4.5); CREATININE 1.91 mg/dL (0.55-1.02); POTASSIUM 3.7 mmol/L (3.5-5.1); TOTAL PROTEIN 5.4 gm/dL (6.4-8.2)
[2019-09-01 08:00] VITALS: BP 128/78
[2019-09-01 12:00] VITALS: BP 101/76
[2019-09-01 16:00] VITALS: BP 123/74
[2019-09-01 20:00] VITALS: BP 130/89
[2019-09-02] VITALS: BP 131/80
[2019-09-02 07:38] LABS: ALBUMIN 2.9 gm/dl (3.1-4.5); CREATININE 1.88 mg/dL (0.55-1.02); POTASSIUM 4.1 mmol/L (3.5-5.1); TOTAL PROTEIN 6.1 gm/dL (6.4-8.2)
[2019-09-02 07:39] LABS: BASO # 0.1 10*3/uL (0.0-0.1); BASO % 0.6 % (0.0-1.0); EOS # 0.1 10*3/uL (0.0-0.4); EOS % 1.5 % (1.0-4.0); HEMATOCRIT 37.5 % (37.0-47.0); LYMPH # 1.3 10*3/uL (1.3-4.4); LYMPH % 15.1 % (27.0-41.0); MEAN CELL VOLUME 97.2 fl (81.0-99.0); MEAN CORPUSCULAR HGB 29.5 pg (27.0-31.0); MEAN CORPUSCULAR HGB CONC 30.4 g/dl (33.0-37.0); MEAN PLATELET VOLUME 10.4 fl (9.6-12.3); MONO # 0.5 10*3/uL (0.1-1.0); MONO % 5.3 % (3.0-9.0); NEUT # 6.8 10*3/uL (2.3-7.9); NEUT % 76.9 % (47.0-73.0); RED BLOOD COUNT 3.86 10*6/uL (4.10-5.10); RED CELL DISTRI WIDTH 17.7 % (0-14.5); WHITE BLOOD COUNT 8.8 10*3/uL (4.8-10.8)
[2019-09-02 07:40] LABS: PLATELET COUNT AUTOMATED 171 10*3/uL (130-400)
[2019-09-02 08:00] VITALS: BP 132/76
[2019-09-02 12:00] VITALS: BP 140/86
[2019-09-02 16:00] VITALS: BP 136/62
[2019-09-02 20:00] VITALS: BP 132/75
[2019-09-03] VITALS: BP 128/80
[2019-09-03 04:00] VITALS: BP 129/61
[2019-09-03 06:53] LABS: POTASSIUM 4.5 mmol/L (3.5-5.1)
[2019-09-03 06:57] LABS: CREATININE 1.93 mg/dL (0.55-1.02)
[2019-09-03 08:00] VITALS: BP 147/82
[2019-09-03 12:00] VITALS: BP 93/50
[2019-09-03 16:00] VITALS: BP 120/86
[2019-09-03 20:00] VITALS: BP 127/73
[2019-09-04] VITALS (7 sets, daily range): BP systolic 116–148; BP diastolic 76–98
[2019-09-05] VITALS: BP 101/62
[2019-09-05 07:27] LABS: POTASSIUM 4.1 mmol/L (3.5-5.1)
[2019-09-05 07:35] LABS: CREATININE 1.84 mg/dL (0.55-1.02)
[2019-09-05 08:00] VITALS: BP 128/73
[2019-09-05 12:00] VITALS: BP 116/57
[2019-09-05 16:00] VITALS: BP 120/50
[2019-09-05 20:00] VITALS: BP 120/50; BP 127/78
[2019-09-06] VITALS: BP 135/80
[2019-09-06 06:58] LABS: CREATININE 1.76 mg/dL (0.55-1.02); POTASSIUM 4.1 mmol/L (3.5-5.1)
[2019-09-06 08:00] VITALS: BP 135/65
[2019-09-06 12:00] VITALS: BP 132/58
[2019-09-06] MEDS ORDERED: KLOR-CON M2020 ME1 PO (13:09)
[2019-09-06] MEDS ORDERED: LASIX40 MG PO (13:09)
[2019-09-06 16:00] VITALS: BP 145/83
[2019-09-06 20:00] VITALS: BP 134/88
== END 2019-09-06 22:50 | disposition home or self-care (01) | DRG 291 ==
LOC: ED 15:24 → 5E 17:50 → EDHOLD 17:50 → 4E 17:50 → 5E 08-30 17:56
PROVIDERS: Internal Medicine; Physician Assistant; ADMIT Internal Medicine Nephrology
PROC: 0HBRXZZ Excision of Toe Nail, External Approach (ICD-10-PCS; principal; 2019-08-30)
DX: I13.0 Hypertensive heart and chronic kidney disease with heart failure and stage 1 through stage 4 chronic kidney disease, or unspecified chronic kidney disease (principal); N17.0 Acute kidney failure with tubular necrosis; I50.43 Acute on chronic combined systolic (congestive) and diastolic (congestive) heart failure; I48.20 Chronic atrial fibrillation, unspecified; I42.9 Cardiomyopathy, unspecified; N18.3 Chronic kidney disease, stage 3 (moderate); K80.20 Calculus of gallbladder without cholecystitis without obstruction; I27.20 Pulmonary hypertension, unspecified; M19.90 Unspecified osteoarthritis, unspecified site; Z53.8 Procedure and treatment not carried out for other reasons; B35.1 Tinea unguium; I08.1 Rheumatic disorders of both mitral and tricuspid valves; J44.9 Chronic obstructive pulmonary disease, unspecified; Z95.2 Presence of prosthetic heart valve; R79.89 Other specified abnormal findings of blood chemistry; Z96.653 Presence of artificial knee joint, bilateral; Z98.41 Cataract extraction status, right eye; Z87.891 Personal history of nicotine dependence; Z82.49 Family history of ischemic heart disease and other diseases of the circulatory system; Z83.49 Family history of other endocrine, nutritional and metabolic diseases; Z88.1 Allergy status to other antibiotic agents; Z88.8 Allergy status to other drugs, medicaments and biological substances; Z79.82 Long term (current) use of aspirin; Z79.01 Long term (current) use of anticoagulants; Z79.899 Other long term (current) drug therapy; Z86.73 Personal history of transient ischemic attack (TIA), and cerebral infarction without residual deficits; Z86.718 Personal history of other venous thrombosis and embolism; Z96.611 Presence of right artificial shoulder joint; Z98.2 Presence of cerebrospinal fluid drainage device

== ENCOUNTER 2019-09-09 14:15 | Inpatient (IN) | payer OTHER ==
[~2019-09-09] VITALS: Ht 154.9 cm; Wt 79.5 kg
[~2019-09-09 14:15] MED LIST changes: +KLOR-CON M2020 ME1 PO; +LASIX40 MG PO
[2019-09-09 14:50] VITALS: BP 142/98
[2019-09-09 15:15] LABS: BASO % 0.6 % (0.0-1.0); EOS # 0.1 10*3/uL (0.0-0.4); EOS % 1.1 % (1.0-4.0); LYMPH # 1.4 10*3/uL (1.3-4.4); LYMPH % 20.4 % (27.0-41.0); MEAN CELL VOLUME 93.9 fl (81.0-99.0); MEAN CORPUSCULAR HGB 28.7 pg (27.0-31.0); MEAN CORPUSCULAR HGB CONC 30.5 g/dl (33.0-37.0); MEAN PLATELET VOLUME 9.6 fl (9.6-12.3); MONO # 0.6 10*3/uL (0.1-1.0); MONO % 9.1 % (3.0-9.0); NEUT # 4.8 10*3/uL (2.3-7.9); NEUT % 68.1 % (47.0-73.0); PLATELET COUNT AUTOMATED 242 10*3/uL (130-400); RED BLOOD COUNT 3.94 10*6/uL (4.10-5.10); RED CELL DISTRI WIDTH 17.3 % (0-14.5); WHITE BLOOD COUNT 7.1 10*3/uL (4.8-10.8)
[2019-09-09 15:35] LABS: ALBUMIN 3.1 gm/dl (3.1-4.5); CREATININE 1.77 mg/dL (0.55-1.02); POTASSIUM 4.2 mmol/L (3.5-5.1); TOTAL PROTEIN 6.4 gm/dL (6.4-8.2); TROPONIN I 0.03 ng/ml (<0.045)
[2019-09-09 17:44] VITALS: BP 144/92
[2019-09-09 18:00] VITALS: BP 138/96
[2019-09-09 20:00] VITALS: BP 137/98
[2019-09-10] VITALS: BP 124/67
[2019-09-10 06:40] LABS: BASO % 0.7 % (0.0-1.0); EOS # 0.1 10*3/uL (0.0-0.4); HEMATOCRIT 36.4 % (37.0-47.0); LYMPH % 22.4 % (27.0-41.0); MEAN CORPUSCULAR HGB 29.2 pg (27.0-31.0); MEAN CORPUSCULAR HGB CONC 29.9 g/dl (33.0-37.0); MEAN PLATELET VOLUME 10.4 fl (9.6-12.3); MONO # 0.5 10*3/uL (0.1-1.0); MONO % 11.9 % (3.0-9.0); NEUT # 2.8 10*3/uL (2.3-7.9); NEUT % 62.3 % (47.0-73.0); RED BLOOD COUNT 3.73 10*6/uL (4.10-5.10); RED CELL DISTRI WIDTH 17.4 % (0-14.5); WHITE BLOOD COUNT 4.5 10*3/uL (4.8-10.8)
[2019-09-10 06:41] LABS: MEAN CELL VOLUME 97.6 fl (81.0-99.0); PLATELET COUNT AUTOMATED 150 10*3/uL (130-400)
[2019-09-10 06:49] LABS: CREATININE 1.87 mg/dL (0.55-1.02); POTASSIUM 3.5 mmol/L (3.5-5.1); TOTAL PROTEIN 5.6 gm/dL (6.4-8.2)
[2019-09-10 06:54] LABS: FREE T4 1.11 ng/dl (0.76-1.46)
[2019-09-10 06:59] LABS: THYROID STIM HORMONE (HS) 8.61 uIU/ml (0.358-4.75)
[2019-09-10 07:15] LABS: ACT PARTIAL THROMBO TIME 26.3 SECONDS (20.0-32.1); INTERNATIONAL NORM RATIO 1.1 (2.0-3.5)
[2019-09-10 08:00] VITALS: BP 138/82
[2019-09-10 12:00] VITALS: BP 145/95
[2019-09-10 13:20] LABS: VITAMIN D, 25-HYDROXY 78.6 ng/mL (30-100)
[2019-09-10 15:18] LABS: BILIRUBIN NEGATIVE (NEGATIVE); BLOOD NEGATIVE (NEGATIVE); CLARITY CLEAR (CLEAR); COLOR YELLOW (YELLOW); GLUCOSE NEGATIVE (NEGATIVE); KETONE NEGATIVE (NEGATIVE); LEUKO ESTERASE NEGATIVE (NEGATIVE); NITRITE NEGATIVE (NEGATIVE); SPECIFIC GRAVITY 1.015 (1.005-1.030); UROBILINOGEN 0.2 E.U./dl (0.2-1.0)
[2019-09-10 15:19] LABS: BACTERIA 1+; MUCOUS 1+
[2019-09-10 15:52] VITALS: BP 122/75
[2019-09-10 20:00] VITALS: BP 116/69
[2019-09-11] VITALS: BP 125/79
[2019-09-11 06:06] LABS: ALBUMIN 3.1 gm/dl (3.1-4.5); CREATININE 2.01 mg/dL (0.55-1.02); POTASSIUM 3.7 mmol/L (3.5-5.1); TOTAL PROTEIN 5.7 gm/dL (6.4-8.2)
[2019-09-11 06:26] LABS: BASO % 0.4 % (0.0-1.0); EOS # 0.1 10*3/uL (0.0-0.4); EOS % 2.4 % (1.0-4.0); HEMATOCRIT 35.7 % (37.0-47.0); LYMPH # 1.1 10*3/uL (1.3-4.4); LYMPH % 19.9 % (27.0-41.0); MEAN CELL VOLUME 96.5 fl (81.0-99.0); MEAN CORPUSCULAR HGB 28.9 pg (27.0-31.0); MONO # 0.5 10*3/uL (0.1-1.0); MONO % 9.6 % (3.0-9.0); NEUT # 3.6 10*3/uL (2.3-7.9); NEUT % 67.1 % (47.0-73.0); PLATELET COUNT AUTOMATED 171 10*3/uL (130-400); RED CELL DISTRI WIDTH 17.2 % (0-14.5); WHITE BLOOD COUNT 5.4 10*3/uL (4.8-10.8)
[2019-09-11 08:00] VITALS: BP 131/81
[2019-09-11 12:00] VITALS: BP 138/79
[2019-09-11 16:00] VITALS: BP 129/83
[2019-09-11 20:00] VITALS: BP 126/77
[2019-09-12] VITALS: BP 149/80
[2019-09-12 06:28] LABS: POTASSIUM 3.6 mmol/L (3.5-5.1)
[2019-09-12 06:39] LABS: ALBUMIN 3.1 gm/dl (3.1-4.5); CREATININE 2.07 mg/dL (0.55-1.02); TOTAL PROTEIN 6.1 gm/dL (6.4-8.2)
[2019-09-12 08:00] VITALS: BP 154/91
[2019-09-12 12:00] VITALS: BP 126/67
[2019-09-12 16:00] VITALS: BP 151/68
[2019-09-12 17:02] LABS: URINE AMPHETAMINES < 1000 (1000ng/ml); URINE BARBITURATES < 200 (200ng/ml); URINE BENZODIAZEPINES < 200 (200ng/ml); URINE CANNABINOIDS (THC) < 50 (50ng/ml); URINE COCAINE < 300 (300ng/ml); URINE METHADONE < 300 (300ng/ml); URINE OPIATES > 300 (300ng/ml)
[2019-09-12 17:10] LABS: URINE PHENCYCLIDINE < 25 (25ng/ml)
[2019-09-12 20:00] VITALS: BP 144/72
[2019-09-13] VITALS: BP 157/82
[2019-09-13 06:16] LABS: BASO # 0.1 10*3/uL (0.0-0.1); BASO % 0.6 % (0.0-1.0); EOS # 0.2 10*3/uL (0.0-0.4); EOS % 2.5 % (1.0-4.0); HEMATOCRIT 37.4 % (37.0-47.0); LYMPH # 1.6 10*3/uL (1.3-4.4); LYMPH % 19.8 % (27.0-41.0); MEAN CELL VOLUME 94.7 fl (81.0-99.0); MEAN CORPUSCULAR HGB 28.6 pg (27.0-31.0); MEAN CORPUSCULAR HGB CONC 30.2 g/dl (33.0-37.0); MEAN PLATELET VOLUME 9.9 fl (9.6-12.3); MONO # 0.9 10*3/uL (0.1-1.0); MONO % 10.6 % (3.0-9.0); NEUT # 5.3 10*3/uL (2.3-7.9); NEUT % 65.9 % (47.0-73.0); PLATELET COUNT AUTOMATED 246 10*3/uL (130-400); RED BLOOD COUNT 3.95 10*6/uL (4.10-5.10); RED CELL DISTRI WIDTH 17.2 % (0-14.5); WHITE BLOOD COUNT 8.1 10*3/uL (4.8-10.8)
[2019-09-13 08:00] VITALS: BP 153/96
[2019-09-13 08:44] LABS: ALBUMIN 3.5 gm/dl (3.1-4.5); CREATININE 2.13 mg/dL (0.55-1.02); POTASSIUM 3.6 mmol/L (3.5-5.1); TOTAL PROTEIN 6.3 gm/dL (6.4-8.2)
[2019-09-13 12:00] VITALS: BP 155/90
[2019-09-13 16:00] VITALS: BP 155/90
[2019-09-13 20:00] VITALS: BP 144/95
[2019-09-14] VITALS: BP 123/72
[2019-09-14 06:26] LABS: ALBUMIN 2.9 gm/dl (3.1-4.5); CREATININE 1.74 mg/dL (0.55-1.02); POTASSIUM 2.9 mmol/L (3.5-5.1); TOTAL PROTEIN 5.8 gm/dL (6.4-8.2)
[2019-09-14 08:00] VITALS: BP 154/89
[2019-09-14 12:00] VITALS: BP 148/74
[2019-09-14 16:00] VITALS: BP 128/74
[2019-09-14 20:00] VITALS: BP 133/90
[2019-09-15] VITALS: BP 110/63
[2019-09-15 08:00] VITALS: BP 138/90
[2019-09-15 12:00] VITALS: BP 157/98
[2019-09-15 16:00] VITALS: BP 119/70
[2019-09-15 17:02] LABS: BASO % 0.5 % (0.0-1.0); EOS # 0.2 10*3/uL (0.0-0.4); EOS % 2.4 % (1.0-4.0); HEMATOCRIT 36.7 % (37.0-47.0); LYMPH # 1.2 10*3/uL (1.3-4.4); LYMPH % 20.1 % (27.0-41.0); MEAN CELL VOLUME 97.6 fl (81.0-99.0); MEAN CORPUSCULAR HGB 28.7 pg (27.0-31.0); MEAN CORPUSCULAR HGB CONC 29.4 g/dl (33.0-37.0); MEAN PLATELET VOLUME 9.7 fl (9.6-12.3); MONO # 0.6 10*3/uL (0.1-1.0); MONO % 9.5 % (3.0-9.0); NEUT # 4.2 10*3/uL (2.3-7.9); NEUT % 67.2 % (47.0-73.0); PLATELET COUNT AUTOMATED 176 10*3/uL (130-400); RED BLOOD COUNT 3.76 10*6/uL (4.10-5.10); RED CELL DISTRI WIDTH 17.5 % (0-14.5); WHITE BLOOD COUNT 6.2 10*3/uL (4.8-10.8)
[2019-09-15 17:13] LABS: CREATININE 1.72 mg/dL (0.55-1.02); POTASSIUM 3.5 mmol/L (3.5-5.1)
[2019-09-15 20:00] VITALS: BP 144/87
[2019-09-16] VITALS: BP 130/76
[2019-09-16 08:00] VITALS: BP 153/99
[2019-09-16 12:00] VITALS: BP 141/83
[2019-09-16 16:00] VITALS: BP 150/87
[2019-09-16 20:00] VITALS: BP 135/87
[2019-09-17] VITALS: BP 154/77
[2019-09-17 06:36] LABS: ALBUMIN 3.3 gm/dl (3.1-4.5); CREATININE 1.5 mg/dL (0.55-1.02); POTASSIUM 3.1 mmol/L (3.5-5.1); TOTAL PROTEIN 6.2 gm/dL (6.4-8.2)
[2019-09-17 08:00] VITALS: BP 150/70
[2019-09-17 12:00] VITALS: BP 135/70
[2019-09-17 15:40] VITALS: BP 135/70
[2019-09-17 20:00] VITALS: BP 152/98
[2019-09-18] VITALS: BP 136/76
[2019-09-18 08:00] VITALS: BP 114/69
[2019-09-18 08:59] LABS: ALBUMIN 3.5 gm/dl (3.1-4.5); CREATININE 1.51 mg/dL (0.55-1.02); POTASSIUM 3.1 mmol/L (3.5-5.1); TOTAL PROTEIN 6.7 gm/dL (6.4-8.2)
[2019-09-18 12:00] VITALS: BP 149/88
[2019-09-18 16:00] VITALS: BP 120/73
[2019-09-18 20:00] VITALS: BP 108/65
[2019-09-19] VITALS: BP 137/75
[2019-09-19 08:00] VITALS: BP 162/84
[2019-09-19 12:00] VITALS: BP 124/89
[2019-09-19] MEDS ORDERED: LIPITOR20 MG PO (13:17)
[2019-09-19] MEDS ORDERED: ABILIFY5 MG PO (13:17)
[2019-09-19] MEDS ORDERED: OMEPRAZOLE40 MG PO (13:17)
[2019-09-19] MEDS ORDERED: VENTOLIN 02.5 MG/3 M INH (13:17)
[2019-09-19] MEDS ORDERED: Carafate1 GM PO (13:17)
[2019-09-19] MEDS ORDERED: COREG6.25 MG PO (13:17)
[2019-09-19] MEDS ORDERED: VITAMIN D325 MCG PO (13:17)
[2019-09-19] MEDS ORDERED: TRELEGY ELLIPT1 EACH INH (13:17)
[2019-09-19] MEDS ORDERED: ASPIR 8181 MG PO (13:17)
[2019-09-19] MEDS ORDERED: LASIX40 MG PO (13:17)
[2019-09-19] MEDS ORDERED: ZOFRAN4 MG PO (13:17)
[2019-09-19] MEDS ORDERED: XARE15TA PO (13:17)
[2019-09-19] MEDS ORDERED: TRAZODONE50 MG PO (13:17)
[2019-09-19] MEDS ORDERED: AMIODARONE HYD200 MG PO (13:17)
== END 2019-09-19 15:37 | disposition other institution (70) | DRG 291 ==
LOC: ED 14:15 → 4E 16:53 → EDHOLD 16:53 → ED 16:53 → EDHOLD 16:53 → 4E 16:53 → EDHOLD 17:37 → 4E 18:06 → 5E 09-19 11:03
PROVIDERS: Internal Medicine; Internal Medicine Nephrology; Nurse Practitioner Family; ADMIT Internal Medicine
DX: I13.0 Hypertensive heart and chronic kidney disease with heart failure and stage 1 through stage 4 chronic kidney disease, or unspecified chronic kidney disease (principal); N17.0 Acute kidney failure with tubular necrosis; I50.23 Acute on chronic systolic (congestive) heart failure; E44.1 Mild protein-calorie malnutrition; F23 Brief psychotic disorder; F31.81 Bipolar II disorder; K29.70 Gastritis, unspecified, without bleeding; K80.20 Calculus of gallbladder without cholecystitis without obstruction; K25.9 Gastric ulcer, unspecified as acute or chronic, without hemorrhage or perforation; I48.91 Unspecified atrial fibrillation; N18.3 Chronic kidney disease, stage 3 (moderate); Z03.818 Encounter for observation for suspected exposure to other biological agents ruled out; Z53.29 Procedure and treatment not carried out because of patient's decision for other reasons; R26.2 Difficulty in walking, not elsewhere classified; M19.90 Unspecified osteoarthritis, unspecified site; D64.9 Anemia, unspecified; G89.29 Other chronic pain; E83.39 Other disorders of phosphorus metabolism; R73.9 Hyperglycemia, unspecified; E03.9 Hypothyroidism, unspecified; F03.90 Unspecified dementia, unspecified severity, without behavioral disturbance, psychotic disturbance, mood disturbance, and anxiety; E87.6 Hypokalemia; Z88.8 Allergy status to other drugs, medicaments and biological substances; Z88.1 Allergy status to other antibiotic agents; Z95.2 Presence of prosthetic heart valve; Z96.652 Presence of left artificial knee joint; Z96.651 Presence of right artificial knee joint; Z98.41 Cataract extraction status, right eye; Z87.891 Personal history of nicotine dependence; Z82.49 Family history of ischemic heart disease and other diseases of the circulatory system; Z83.49 Family history of other endocrine, nutritional and metabolic diseases; Z79.82 Long term (current) use of aspirin; Z79.899 Other long term (current) drug therapy; Z86.73 Personal history of transient ischemic attack (TIA), and cerebral infarction without residual deficits; Z86.718 Personal history of other venous thrombosis and embolism; Z79.01 Long term (current) use of anticoagulants; Z68.33 Body mass index [BMI] 33.0-33.9, adult